=== PATIENT | male | born 1950 | race Caucasian/White ===

== ENCOUNTER 2017-11-07 10:09 | Emergency (ER) | payer MEDICARE ==
[2017-11-07 10:30] VITALS: BP 126/78
--- NOTE | 2017-11-07 10:41 | UC ---
Upper Extremity HPI - HPI Summary HPI Summary: pt states issues with his back and it will sometimes give out. on 09/12/17, it gave out and he injured his L shoulder. he has ongoing pain. he states he can move it all around but it is painful. no numbness to the arm. denies head, neck and any other acute injury. - History of Current Complaint Chief Complaint: UCUpperExtremity Stated Complaint: S/P FALL LEFT SHOULDER PAIN Time Seen by Provider: 11/07/17 10:24 Hx Obtained From: Patient Onset/Duration: Sudden Onset Pain Intensity: 5 Alleviating Factor(s): Nothing Associated Signs And Symptoms: Negative: Swelling, Numbness/Tingling - Allergies/Home Medications Allergies/Adverse Reactions: Allergies Allergy/AdvReac Type Severity Reaction Status Date / Time chlorpromazine AdvReac Agitation Verified 11/07/17 10:26 [From Thorazine] MELORIL AdvReac Severe Agitation Uncoded 08/31/12 10:32 Home Medications: Home Medications Gabapentin CAP(*) [Neurontin 300 CAP(*)] 300 mg PO TID 11/07/17 [History Confirmed 11/07/17] Morphine Sulfate [Morphine Sulfate ER] 30 mg PO BID 11/07/17 [History Confirmed 11/07/17] Tapentadol ER (NF) [Nucynta ER (NF)] 100 mg PO BID 11/07/17 [History Confirmed 11/07/17] PMH/Surg Hx/FS Hx/Imm Hx - Additional Past Medical History Additional PMH: chronic back pain - Surgical History Surgical History: Yes Surgery Procedure, Year, and Place: 1977 CHEST TUBE [facility] INJ FX RIBS PUNCTURED LUNG. 1989 BACK [facility]. 1999 NOSE AND THROAT FOR SNORING KEEL[facility]. 1999 [facility] CARPAL TUNNEL [facility] - Family History Known Family History: Positive: Hypertension, Diabetes - Social History Occupation: Disabled Alcohol Use: None Substance Use Type: None Smoking Status (MU): Never Smoked Tobacco - Immunization History Vaccination Up to Date: Yes Review of Systems Constitutional: Negative Skin: Negative Eyes: Negative ENT: Negative Respiratory: Negative Cardiovascular: Negative Gastrointestinal: Negative Genitourinary: Negative Motor: Negative Neurovascular: Negative Musculoskeletal: Other: - L shoulder pain, chronic back pain Neurological: Negative Psychological: Negative Is Patient Immunocompromised?: No All Other Systems Reviewed And Are Negative: Yes Physical Exam Triage Information Reviewed: Yes Appearance: Well-Appearing Vital Signs: Initial Vital Signs Temp 98.3 F 11/07/17 10:23 Pulse 101 11/07/17 10:23 Resp 18 11/07/17 10:23 BP 126/78 11/07/17 10:23 Pulse Ox 97 11/07/17 10:23 Vital Signs Reviewed: Yes Eyes: Positive: Conjunctiva Clear ENT: Positive: Normal ENT inspection Neck: Positive: Supple, Nontender, No Lymphadenopathy Respiratory: Positive: Lungs clear, Normal breath sounds Cardiovascular: Positive: RRR, No Murmur Abdomen Description: Positive: Nontender, No Organomegaly, Soft Bowel Sounds: Positive: Present Musculoskeletal: Positive: Other: - Head and neck/c-spine are atraumatic. Bare for bilateral shoulder exam: LUE has no gross deformity, swelling or discoloration. Generalized tenderness. Pt launched into active rom L should and it is intact. + drop arm LUE. Below shoulder is atraumatic with full s/v/m function. Neurological: Positive: Alert Psychological: Positive: Age Appropriate Behavior Skin Exam: Normal Diagnostics - Radiology No standard instances Xray Interpretation: No Acute Changes Radiology Interpretation Completed By: Radiologist - L shoulder Upper Extremity Course/Dx - Course Course Of Treatment: no fx or dislocation. + drop arm. probable rotator cuff injury. will refer to orthopedics. pt already on aggressive pain medications. he ambulates with cane and get back spasm thus no sling as I think risk from harm does not out weigh any benefit. - Differential Dx/Diagnosis Provider Diagnoses: L shoulder pain. Probable rotator cuff injury Discharge - Sign-Out/Discharge Documenting (check all that apply): Discharge/Admit/Transfer - Discharge Plan Condition: Stable Disposition: HOME Patient Education Materials: Shoulder Pain (ED) Referrals: Chelo SPIVEY,Tammy [Primary Care Provider] - If Needed Tyron Oleary MD [Medical Doctor] - As Soon As Possible - Billing Disposition and Condition Condition: STABLE Disposition: HOME
--- NOTE | 2017-11-07 11:15 | RAD ---
INDICATION: Left shoulder pain COMPARISON: None TECHNIQUE: Routine frontal, Y and axial views were obtained. FINDINGS: There is no acute bony change. 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 The soft tissues are intact. IMPRESSION: MILD OSTEOARTHRITIC CHANGE.
== END 2017-11-07 11:30 | disposition home or self-care (01) ==
LOC: UCCORT 10:09
DX: M25.512 Pain in left shoulder (principal); X58.XXXA Exposure to other specified factors, initial encounter; Y93.9 Activity, unspecified; Y92.9 Unspecified place or not applicable; Z88.8 Allergy status to other drugs, medicaments and biological substances
CPT/HCPCS: 99211; G0463

== ENCOUNTER 2019-01-01 07:30 | Inpatient (IN) | payer OTHER ==
[2019-01-07] MEDS ORDERED: Buffered Lidocaine 1% SYRIN* 1 ML/SYRINGE INTRADERM ONE (10:53)
[2019-01-08] MEDS ORDERED: Lactated Ringers 1000 ML Bag* 1,000 ML IV SCH (06:00)
[2019-07-10] MEDS ORDERED: Buffered Lidocaine 1% SYRIN* 1 ML/SYRINGE INTRADERM ONE (10:20)
[2019-07-11] MEDS ORDERED: Famotidine IV* 10 MG/ML 2 ML (20 mg) IV ONE (06:00)
[2019-07-11] MEDS ORDERED: Lactated Ringers 1000 ML Bag* 1,000 ML IV SCH (06:00)
--- OUTSIDE RECORDS SUMMARY | 2019-07-11 06:03 | XMS REPORT | Continuity of Care Document ---
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 Onset: 03/20/2013 Social History Type Date Description Comments Sex Unknown Tobacco Use Start: Unknown End: Former Cigarette Smoker Unknown Cigarette Use Quit 26 Years Ago ETOH Use Denies alcohol use Recreational Drug Use Never Used Drugs Tobacco Use Start: Unknown End: Patient is a former smoker Unknown Smoking Status Reviewed: 07/01/19 Patient is a former smoker Exercise Type/Frequency Exercises sporadically Allergies, Adverse Reactions, Alerts Active Allergies Reaction Severity Comments Date Thorazine 03/28/2012 Mellaril 03/28/2012 Medications Active Medications SIG Qnty Indications Ordering Provider Date Pregabalin 2 caps by mouth 90caps Vassilios 07/01/2019 200mg Capsules three times a MD Megan day Amitriptyline HCL 2 by mouth 30tabs Vassilios 07/01/2019 25mg every night MD Megan Tablets Meclizine Pt unsure of Unknown 04/01/2019 dose/how often he takes Enalapril Maleate 1 po qd Unknown 5mg Tablets Cymbalta 1 po bid 30caps Unknown 60mg Caps DR Part Morphine Sulfate 1 tab by mouth 20tabs Unknown 15mg 3 times daily Tablets Terazosin HCL qd Unknown 10mg Capsules Gralise 1 tab by mouth Unknown 600mg Tablets three times daily Amiodarone HCL Pt unsure of Mimi Valerio 200mg how often he Tablets takes Diltiazem HCL ER Pt unsure of Milton Solorzano, Coated Beads how often he MD 240mg Caps takes ER 24HR Pravastatin Sodium Pt unsure of David Goncalves MD 20mg how often he Tablets takes Hydromorphone HCL one every 4 Unknown 4mg hours as needed Tablets pain Plavix 1 by mouth Unknown 75mg Tablets every day Medications Administered in Office Medication SIG Qnty Indications Ordering Provider Date Celestone 3 mg and 3mg Tyron Oleary MD 11/07/2017 Injection Immunizations Description No Information Available Vital Signs Date Vital Result Comment 07/01/2019 12:52pm Height 70 inches 5'10" Weight 210.00 lb Heart Rate 60 /min BP Systolic 138 mmHg BP Diastolic 70 mmHg Pain Level 7 Lower Back BMI (Body Mass Index) 30.1 kg/m2 11/26/2018 2:14pm Height 70 inches 5'10" Weight 220.00 lb BP Systolic Sitting 130 mmHg BP Diastolic Sitting 70 mmHg Pain Level 7 BMI (Body Mass Index) 31.6 kg/m2 Results Test Acquired Date Facility Test Result H/L Range Note CBC No Diff 06/26/2019 [facility] White Blood 8.8 10^3/uL Normal 3.5-10.[address] [place] [address] [phone] Red Blood Count 4.38 10^6/uL Normal 4.18-5.48 Hemoglobin 14.4 g/dL Normal 14.0-18.0 Hematocrit 41 % Low 42-52 Mean Corpuscular Volume 93 fL Normal 80-94 Mean Corpuscular Hemoglobin 33 pg High 27-31 Mean Corpuscular HGB Conc 35 g/dL Normal 31-36 Red Cell Distribution Width 14 % Normal 10-15 Platelet Count 356 10^3/uL Normal 150-450 Mean Platelet Volume 7.8 fL Normal 7.4-10.4 Inr/Protime 06/26/2019 [facility] Inr 1.09 Normal 0.82-1.09 [address] [place] [address] [phone] Laboratory test 06/26/2019 [facility] Activated 34.5 Normal 26.0-38.0 finding [address] [facility] [place] [address] Thrombo Time [phone] Urinalysis 06/26/2019 [facility] Urine Color [place] Profile [address] [place] [address] [phone] Urine Appearance Cloudy Urine Specific [place] 1.019 Normal 1.010-1.030 Urine pH 5.0 Normal 5-9 Urine Urobilinogen Negative Negative Urine Ketones Negative Negative Urine Protein Negative Negative Urine Leukocytes Negative Negative Urine Blood Negative Negative Urine Nitrite Negative Negative Urine Bilirubin Negative Negative Urine Glucose Negative Negative Basic Metabolic 06/26/2019 [facility] Sodium 135 mmol/L Normal 135-145 Panel [address] [place] [address] [phone] Chloride 101 mmol/L Normal 101-111 Co2 Carbon Dioxide 27 mmol/L Normal 22-32 Glucose 144 mg/dL High 70-100 Blood Urea Nitrogen 23 mg/dL Normal 6-24 Creatinine 1.31 mg/dL High 0.67-1.17 BUN/Creatinine Ratio 17.6 Normal 8-20 Calcium 9.1 mg/dL Normal 8.6-10.3 Egfr Non- 54.1 >60 Egfr 65.5 >60 2 Potassium 5.7 mmol/L High 3.5-5.0 Anion Gap 7 mmol/L Normal 2-11 Type & Screen 06/26/2019 [facility] Patient Blood Type O Positive [address] [place] [address] [phone] Antibody Screen NEGATIVE 1 Standard intensity warfarin therapeutic range: 2.0-3.0 High intensity warfarin therapeutic range: 2.5-3.5 2 Because ethnic data is not always readily available, this report includes an eGFR for both -Americans and non- Americans. The National Kidney Disease Education Program (NKDEP) does not endorse the use of the MDRD equation for patients that are not between the ages of 18 and 70, are , have extremes of body size, muscle mass, or nutritional status, or are non- or non-. According to the National Kidney Foundation, irrespective of diagnosis, the stage of the disease is based on the level of kidney function: Stage Description GFR(mL/min/1.73 m(2)) 1 Kidney damage with normal or decreased GFR 90 2 Kidney damage with mild decrease in GFR 60-89 3 Moderate decrease in GFR 30-59 4 Severe decrease in GFR 15-29 5 Kidney failure <15 (or dialysis) Procedures Description No Information Available Medical Devices Description No Information Available Encounters Description No Information Available Assessments Date Code Description Provider 07/01/2019 M96.1 Postlaminectomy syndrome, not elsewhere Chadwick Guzman MD classified 07/01/2019 M47.26 Other spondylosis with radiculopathy, Chadwick Guzman MD lumbar region 07/01/2019 M51.17 Intervertebral disc disorders with Chadwick Guzman MD radiculopathy, lumbosacral region 06/14/2019 M96.1 Postlaminectomy syndrome, not elsewhere Chadwick Guzman MD classified 06/14/2019 M47.26 Other spondylosis with radiculopathy, Chadwick Guzman MD lumbar region 06/14/2019 M43.16 Spondylolisthesis, lumbar region Chadwick Guzman MD Plan of Treatment Future Appointment(s):08/14/2019 12:30 pm - Chadwick Guzman MD at [facility]07/17/2019 12:30 pm - Chadwick Guzman MD at [facility]07/09/2019 7:30 am - Chadwick Guzman MD at [facility]07/01/2019 - IVA Hunt[place]96.1 Postlaminectomy syndrome, not elsewhere [id number] Other spondylosis with radiculopathy, lumbar regionFollow up:RV one week, one month, three months postop.M51.17 Intvrt disc disorders w radiculopathy, lumbosacral region Functional Status Description No Information Available Mental Status Description No Information Available Referrals Description No Information Available
--- OUTSIDE RECORDS SUMMARY | 2019-07-11 06:03 | XMS REPORT | Continuity of Care Document ---
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 Onset: 09/08/2016 Lumbar radiculopathy Tammy Whitney M.D. Onset: 09/08/2016 Type 2 diabetes mellitus Tammy Whitney M.D. Onset: 09/08/2016 Type II diabetes mellitus uncontrolled Tammy Whitney M.D. Onset: 09/08/2016 Chronic pain syndrome Tammy Whitney M.D. Onset: 09/08/2016 Taking medication Tammy Whitney M.D. Onset: 09/08/2016 Hyperlipidemia Tammy Whitney M.D. Onset: 09/08/2016 Walking disability Tammy Whitney M.D. Onset: 09/08/2016 Essential hypertension Tammy Whitney M.D. Onset: 10/14/2016 Screening for malignant neoplasm of colon Tammy Whitney M.D. Onset: 2016 Type 2 diabetes mellitus with diabetic Tammy Whitney M.D. Onset: 06/16/2017 neuropathy, unspecified Disorder of bursa of shoulder region Tammy Whitney M.D. Onset: 10/05/2017 Screening for malignant neoplasm of prostate Tammy Whitney M.D. Onset: 10/05 Low back pain Tammy Whitney M.D. Onset: 10/05/2017 Benign prostatic hypertrophy with outflow Monse Rodriguez M.D. Onset: 2017 obstruction Psychogenic impotence Monse Rodriguez M.D. Onset: 10/13/2017 Paroxysmal supraventricular tachycardia Tammy Whitney M.D. Onset: 04/06/2018 Sleep apnea Tammy Whitney M.D. Onset: 04/13/2018 Atrial fibrillation Tammy Whitney M.D. Onset: 06/05/2018 Hypothyroidism David Goncalves MD Onset: 08/23/2018 Social History Type Date Description Comments Sex Unknown Tobacco Use Start: Unknown End: Former Cigarette Smoker quit 1886 Unknown Smoking Status Reviewed: 07/02/19 Former Cigarette Smoker quit 1886 ETOH Use Denies alcohol use Tobacco Use Start: Unknown End: Patient is a former smoker quit 1986 Unknown Recreational Drug Use Denies Drug Use Allergies, Adverse Reactions, Alerts Active Allergies Reaction Severity Comments Date Thorazine agitation 12/29/2015 Chlorpromazine anxious 04/10/2018 Mellaril agitation 12/29/2015 Thioridazine anxious 04/10/2018 Medications Active Medications SIG Qnty Indications Ordering Date Provider Kayexalate 15g twice a day 453.600gm David Goncalves MD 06/27/2019 Powder for 2 days Plavix 1 by mouth every 30tabs Rashad, 06/25/2019 75mg Tablets day Milton Persaud M.D., FACC Aspirin Adult Low 1 by mouth every 30tabs Rashad, 06/25/2019 Dose day Milton Persaud M.D., 81mg Tablets DR BABAK Levothyroxine Sodium Take One Tablet By 30tabs E03.9 David Goncalves MD 02/25 Mouth Every Day as 88mcg Tablets Directed Metoprolol Tartrate take one tablet by 180tabs Rashad, 06/25/2018 mouth twice a day Milton Persaud M.D., 50mg Tablets FAC Amiodarone HCL 1 Tablet Once A 30tabs Mimi Valerio 06/05/2018 200mg Day Emil, MSN, Tablets RACECOURSE BARRIER ATTENDANT Pravastatin Sodium Take One Tablet By 90tabs David Goncalves MD 04/06/2018 Mouth Every Day 20mg Tablets Metformin HCL 1 by mouth twice a 180tabs E11.9 Rashad, 12/28/2016 1000mg day Milton Persaud M.D., Tablets FACIrvin Enalapril Maleate Take One Tablet By 90tabs Romina Sutton, 11/22/2016 Mouth Every Day 20mg Tablets Freestyle Lite Test test fingerstick 300units E11.9 Gill James, 2015 blood sugar three PNP-BC, RACECOURSE BARRIER ATTENDANT, Strips times a day Ibclc Freestyle Lite Blood bring to medical 1units E11.9 Yemi Dahl 12/29/2015 Glucose Monitoring office for E., DO System teaching Device Gralise 3 tabs po daily Yemi Dahl 12/29/2015 600mg Tablets E., DO Cymbalta 1 by mouth every 30caps Yemi Dahl 12/29/[address] 12 hrs E., DO Part Morphine Sulfate 1 by mouth tid Unknown 30mg Tablets Hydromorphone HCL 1 by mouth every 4 Unknown 4mg hours prn Tablets Amitriptyline HCL 1-3 tablets by Unknown mouth every night 25mg Tablets at bedtime Diclofenac Epolamine 1 every 12 hrs Unknown 1.3% Patches Diclofenac Potassium 1 by mouth 3x Unknown every day 50mg Tablets History Medications Aspirin Adult 1 PO qd 90tabs E11.9 Milton Solorzano, 05/30/2019 - Dary, [facility] 06/25/2019 325mg Tablets Eliquis 1 tab by mouth 180tabs I48.0 Milton Solorzano, 03/22/2019 - 5mg twice daily Dary, [facility] 05/30/2019 Tablets Medications Administered in Office Medication SIG Qnty Indications Ordering Provider Date Depomedrol 40mg/1cc Jessica Barajas MD 04/17/2019 (methylprednisolone acetate) Injection Depomedrol 40mg/1cc Jessica Barajas MD 01/17/2019 (methylprednisolone acetate) Injection Injection, Monse Wilks M.D. 11/01/2018 undecanoate, 1 mg- 750 units Injection Injection, Monse Wilks M.D. 08/20/2018 undecanoate, 1 mg- 750 units Injection Injection, Monse Wilks M.D. 06/08/2018 undecanoate, 1 mg- 750 units Injection Injection, Monse Wilks M.D. 02/27/2018 undecanoate, 1 mg- 750 units Injection Injection, Monse Wilks M.D. 01/30/2018 undecanoate, 1 mg- 750 units Injection Immunizations CPT Code Status Date Vaccine Lot # [id number] Given 10/03/2018 Pneumococcal Conjugate Vaccine 13 Valent For [id number] Intramuscular Use 68022 Given 12/29/2015 Pneumococcal Conjugate Vaccine 13 Valent For [id number] Intramuscular Use Q2038 Given 05/09/2014 Influenza Vaccine (Fluzone) Age 3 And Older 30738 Given Unknown Influenza Virus Vaccine, Quadrivalent, 36 Mos+, .5ML Vital Signs Date Vital Result Comment 07/02/2019 10:29am BP Systolic 111 mmHg BP Diastolic 68 mmHg Body Temperature 97.0 F Heart Rate 69 /min Respiratory Rate 16 /min Height 70 inches 5'10" Weight 208.00 lb BMI (Body Mass Index) 29.8 kg/m2 BSA (Body Surface Area) 2.12 m2 Titus body weight in kilograms 75 kg 06/18/2019 11:07am BP Systolic 112 mmHg BP Diastolic 68 mmHg Body Temperature 97.0 F Heart Rate 57 /min Respiratory Rate 18 /min Height 70 inches 5'10" Weight 209.00 lb BMI (Body Mass Index) 30.0 kg/m2 BSA (Body Surface Area) 2.13 m2 Titus body weight in kilograms 75 kg O2 % BldC Oximetry 90 % Results Test Acquired Date Facility Test Result H/L Range Note CBC No Diff 06/26/2019 [facility] White Blood 8.8 10^ 3/uL Normal 3.5-10.8 [phone] Count Red Blood Count 4.38 10^6/uL Normal 4.18-5.48 Hemoglobin 14.4 g/dL Normal 14.0-18.0 Hematocrit 41 % Low 42-52 Mean Corpuscular Volume 93 fL Normal 80-94 Mean Corpuscular Hemoglobin 33 pg High 27-31 Mean Corpuscular HGB Conc 35 g/dL Normal 31-36 Red Cell Distribution Width 14 % Normal 10-15 Platelet Count 356 10^3/uL Normal 150-450 Mean Platelet Volume 7.8 fL Normal 7.4-10.4 Inr/Protime 06/26/2019 [facility] Inr 1.09 Normal 0.82-1.09 2 [phone] Laboratory test 06/26/2019 [facility] Activated 34.5 Normal 26.0-38.0 finding [phone] Partial seconds Thrombo Time Urinalysis 06/26/2019 [facility] Urine Color [place] Profile [phone] Urine Appearance Cloudy Urine Specific [place] 1.019 Normal 1.010-1.030 Urine pH 5.0 Normal 5-9 Urine Urobilinogen Negative Negative Urine Ketones Negative Negative Urine Protein Negative Negative Urine Leukocytes Negative Negative Urine Blood Negative Negative Urine Nitrite Negative Negative Urine Bilirubin Negative Negative Urine Glucose Negative Negative Basic Metabolic 06/26/2019 [facility] Sodium 135 mmol /L Normal 135-145 Panel [phone] Chloride 101 mmol/L Normal 101-111 Co2 Carbon Dioxide 27 mmol/L Normal 22-32 Glucose 144 mg/dL High 70-100 Blood Urea Nitrogen 23 mg/dL Normal 6-24 Creatinine 1.31 mg/dL High 0.67-1.17 BUN/Creatinine Ratio 17.6 Normal 8-20 Calcium 9.1 mg/dL Normal 8.6-10.3 Egfr Non- 54.1 >60 Egfr 65.5 >60 2 Potassium 5.7 mmol/L High 3.5-5.0 Anion Gap 7 mmol/L Normal 2-11 Type & Screen 06/26/2019 [facility] Patient Blood O Positive [phone] Type Antibody Screen NEGATIVE Comprehensive Metabolic 06/18/[address] [facility] [address] Glucose 236 mg/dL High 74-106 3 Panel [address] [place] [address] [phone] BUN 30 mg/dL High 7-18 Creatinine 1.7 mg/dL High 0.6-1.3 Glom Filtration Rate, Estimate 43 mL/min >60 If 51 mL/min >60 4 BUN/Creat 17.6 ratio Sodium 129 mmol/L Low 136-145 Potassium 5.2 mmol/L High 3.5-5.1 Chloride 97 mmol/L Low 98-107 Carbon Dioxide 24 mmol/L Normal 21-32 Anion Gap 8 mEq/L Normal 8-16 Calcium 8.7 mg/dL Normal 8.5-10.1 Total Protein 7.4 g/dL Normal 6.4-8.2 Albumin 3.4 g/dL Normal 3.4-5.0 Globulin 4.0 g/dL Normal 1.9-4.3 Alb/Glob 0.9 ratio Bilirubin,Total 0.4 mg/dL Normal 0.2-1.0 Sgot/Ast 20 U/L Normal 15-37 SGPT/Alt 26 U/L Normal 12-78 Alkaline Phosphatase 245 U/L High 45-117 Glycohemoglobin 06/18/[address] Glycohemoglobin 8.3 % High 4.2-6.[address] (A1c) [place], [place] [id number] [phone] eAG 192 mg/dL Laboratory test 06/18/[address] Thyroid 2.18 Normal 0.30- 4.[address] Stim uIU/[place] [address] Hormone [phone] CBC W/Automated 06/18/[address] White Blood 15.8 K/uL High 3.4-10.[address] Count [place], [place] [id number] [phone] Red Blood Count 4.41 M/uL Normal 4.20-5.80 Hemoglobin 14.1 gm/dL Normal 12.8-17.0 Hematocrit 41.8 % Normal 38.0-48.0 Mean Cell Volume 94.8 fl Normal 80.0-96.0 Mean Corpuscular HGB 32.0 pg Normal 27.0-33.0 Mean Corpuscular HGB Conc 33.7 g/dL Normal 31.7-36.0 Platelet Count 323 K/uL Normal 155-360 Red Cell Distri Width SD 45.1 fl Normal 36-51 Red Cell Distri Width %CV 12.9 % Normal 11.6-15.8 Mean Platelet Volume 10.4 fl Normal 6.6-10.6 Neut% 85.4 % High 33.0-73.0 Lymph % 5.2 % Low 20.0-42.0 [place] % 7.6 % Normal 0.0-10.0 Eo% 0.2 % Normal 0.0-6.6 Bas% 0.4 % Normal 0.0-1.1 Immature Grans 1.2 % Normal 0.0-5.0 NRBC % 0.0 /100WBC < 10/ 100 WBC Neut# 13.51 K/uL High 1.8-7.0 Lymph # 0.83 K/uL Low 1.0-4.0 [place] # 1.21 K/uL High 0.0-0.8 Eos # 0.03 K/uL Normal 0.0-0.5 Baso # 0.07 K/uL Normal 0.0-0.1 Immature Grans Absolute 0.19 K/uL NRBC # 0.00 K/uL CBC W/Automated 03/22/2019 [facility] White Blood 6.2 K/uL Normal 3.4-10.5 [address] [place] [address] [phone] Red Blood Count 4.32 M/uL Normal 4.20-5.80 Hemoglobin 13.4 gm/dL Normal 12.8-17.0 Hematocrit 39.7 % Normal 38.0-48.0 Mean Cell Volume 91.9 fl Normal 80.0-96.0 Mean Corpuscular HGB 31.0 pg Normal 27.0-33.0 Mean Corpuscular HGB Conc 33.8 g/dL Normal 31.7-36.0 Platelet Count 257 K/uL Normal 155-360 Red Cell Distri Width SD 50.4 fl Normal 36-51 Red Cell Distri Width %CV 15.1 % Normal 11.6-15.8 Mean Platelet Volume 9.8 fl Normal 6.6-10.6 Neut% 60.7 % Normal 33.0-73.0 Lymph % 19.4 % Low 20.0-42.0 [place] % 11.4 % High 0.0-10.0 Eo% 6.7 % High 0.0-6.6 Bas% 1.0 % Normal 0.0-1.1 Immature Grans 0.8 % Normal 0.0-5.0 NRBC % 0.0 /100WBC < 10/ 100 WBC Neut# 3.78 K/uL Normal 1.8-7.0 Lymph # 1.21 K/uL Normal 1.0-4.0 [place] # 0.71 K/uL Normal 0.0-0.8 Eos # 0.42 K/uL Normal 0.0-0.5 Baso # 0.06 K/uL Normal 0.0-0.1 Immature Grans Absolute 0.05 K/uL NRBC # 0.00 K/uL Laboratory test 03/22/2019 [facility] Magnesium 2.1 mg/dL Normal 1.8-2.4 finding [address] [place], [place] [id number] [phone] Comprehensive 03/22/2019 [facility] Glucose 232 mg/dL High 74-106 Metabolic Panel [address] [place] [address] [phone] BUN 22 mg/dL High 7-18 Creatinine 1.2 mg/dL Normal 0.6-1.3 Glom Filtration Rate, Estimate >60 mL/min >60 If >60 mL/min >60 7 BUN/Creat 18.3 ratio Sodium 136 mmol/L Normal 136-145 Potassium 4.7 mmol/L Normal 3.5-5.1 Chloride 104 mmol/L Normal 98-107 Carbon Dioxide 30 mmol/L Normal 21-32 Anion Gap 2 mEq/L Low 8-16 Calcium 8.4 mg/dL Low 8.5-10.1 Total Protein 7.1 g/dL Normal 6.4-8.2 Albumin 3.8 g/dL Normal 3.4-5.0 Globulin 3.3 g/dL Normal 1.9-4.3 Alb/Glob 1.2 ratio Bilirubin,Total 0.3 mg/dL Normal 0.2-1.0 Sgot/Ast 19 U/L Normal 15-37 SGPT/Alt 31 U/L Normal 12-78 Alkaline Phosphatase 114 U/L Normal 45-117 Laboratory test 02/22/2019 [facility] Thyroid Stim 8.10 uIU/mL High 0.30-4.20 8 finding [address] [place] [address] [phone] 1 Standard intensity warfarin therapeutic range: 2.0-3.0 [...] 15-29 5 Kidney failure <15 (or dialysis) 3 E11.40 4 Note: Persistent reduction for 3 months or more in an eGFR <60 mL/min/1.73 m2 defines CKD. Patients with eGFR values >/=60 mL/min/1.73 m2 may also have CKD if evidence of persistent proteinuria is present. The original MDRD equation for estimated GFR is not valid for patients less than 18 years of age. Additional information may be found at www.kdoqi.org. 5 Elevated levels of HbA1c suggest the need for more aggressive treatment of glycemia. The [place] [employer] recommends that a primary goal of therapy should be a HbA1c of <7% and that physicians should re-evaluate the treatment regimen in patients with HbA1c values consistently >8%. 6 I48.0 7 Note: Persistent reduction for 3 months or more in an eGFR <60 mL/min/1.73 m2 defines CKD. Patients with eGFR values >/=60 mL/min/1.73 m2 may also have CKD if evidence of persistent proteinuria is present. The original MDRD equation for estimated GFR is not valid for patients less than 18 years of age. Additional information may be found at www.kdoqi.org. 8 E03.9 Procedures Date Code Description Status 05/30/2019 39130 Doppler ECHO Color Flow Mapping Completed 05/30/2019 52595 Doppler Echocardiogram Complete Completed 05/30/2019 14412 Transesophageal Echocardiogram Completed 05/03/2019 18854 EKG-Tracing And Report Completed 04/17/2019 56540 Radiology, Shoulder: Two Views (Sso) Completed 04/17/2019 12143 Radiology, Shoulder: Two Views (Sso) Completed 04/17/2019 82886 Asp./Injection major joint Completed 03/22/2019 79627 [employer]plant[employer] Heart Rhythm Derived Completed Data 02/19/2019 67994 Doppler ECHO Color Flow Mapping Completed 02/19/2019 56532 Doppler Echocardiogram Complete Completed 02/19/2019 61366 Transesophageal Echocardiogram Completed 02/04/2019 67614 EKG-Tracing And Report Completed 01/17/2019 45229 Asp./Injection major joint Completed Medical Devices Description No Information Available Encounters Type Date Location Provider Dx Diagnosis Office Visit 06/18/2019 [facility] Laura Leung, Z01.818 Encounter for other 11:30a Sukhjinder MICHELLE preprocedural examination E11.40 Type 2 diabetes mellitus with diabetic neuropathy, unsp Z95.9 Presence of cardiac and vascular implant and graft, unsp I10 Essential (primary) hypertension G47.33 Obstructive sleep apnea (adult) (pediatric) E03.9 Hypothyroidism, unspecified Office Visit 05/03/2019 9:40a Cardiology Office Jose Eduardo Rios Z95.9 Presence of B., PA cardiac and vascular implant and graft, unsp I48.0 Paroxysmal atrial fibrillation I10 Essential (primary) hypertension G47.33 Obstructive sleep apnea (adult) (pediatric) Office Visit 03/22/2019 1:40p Cardiology Office Gabriel I48.0 Paroxysmal atrial Marlyss B., PA fibrillation G47.33 Obstructive sleep apnea (adult) (pediatric) I10 Essential (primary) hypertension Q21.1 Atrial septal defect Office Visit 02/04/2019 2:30p Cardiology Office Pako Higgins I48.0 Paroxysmal atrial MD fibrillation Z79.01 long term care administrator (current) use of anticoagulants Z95.9 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 hypofunction I10 Essential (primary) hypertension I48.91 Unspecified atrial fibrillation Assessments Date Code Description Provider 07/02/2019 E87.5 Hyperkalemia David Goncalves MD 07/02/2019 E03.9 Hypothyroidism, unspecified David Goncalves MD 07/02/2019 I10 Essential (primary) hypertension David Goncalves MD 07/02/2019 E11.40 Type 2 diabetes mellitus with David Goncalves MD diabetic neuropathy, unspecifi 07/02/2019 I48.0 Paroxysmal atrial fibrillation David Goncalves MD 06/18/2019 Z01.818 Encounter for other preprocedural Laura Leung PA examination 06/18/2019 E11.40 Type 2 diabetes mellitus with Laura Leung PA diabetic neuropathy, unspecifi 06/18/2019 Z95.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 PA implant and graft, unspecif 06/18/2019 I10 Essential (primary) hypertension Laura Leung PA 06/18/2019 G47.33 Obstructive sleep apnea of adult Laura Leung PA 06/18/2019 E03.9 Hypothyroidism, unspecified Laura Leung PA 05/30/2019 I48.0 Paroxysmal atrial fibrillation Milton Solorzano M.D., [facility] 05/03/2019 Z95.9 Presence of cardiac and vascular Jose Eduardo Rios PA implant and graft, unspecified 05/03/2019 I48.0 Paroxysmal atrial fibrillation Jose Eduardo Rios, PA 05/03/2019 I10 Essential (primary) hypertension Jose Eduardo Rios, PA 05/03/2019 G47.33 Obstructive sleep apnea of adult Jose Eduardo Rios, PA 04/17/2019 M19.012 Primary osteoarthritis, left Jessica Barajas MD shoulder 04/17/2019 S46.002D Unspecified injury of muscle(s) and Jessica Barajas MD tendon(s) of the rotator cuff of left shoulder, subsequent encounter 04/17/2019 M75.42 Impingement syndrome of left Jessica Barajas MD shoulder 03/22/2019 Z95.9 Presence of cardiac and vascular Pako Higgins MD implant and graft, unspecified 03/22/2019 Z95.9 Presence of cardiac and vascular Jose Eduardo Rios., PA implant and graft, unspecif 03/22/2019 I48.0 Paroxysmal atrial fibrillation Jose Eduardo Rios, PA 03/22/2019 I10 Essential (primary) hypertension Pako Higgins MD 03/22/2019 G47.33 Obstructive sleep apnea of adult Jose Eduardo Rios, PA 03/22/2019 R42 Dizziness and giddiness Pako Higgins MD 03/22/2019 R42 Dizziness and giddiness Jose Eduardo Rios, PA 03/22/2019 I10 Essential (primary) hypertension Jose Eduardo Rios, PA 03/22/2019 I48.0 Paroxysmal atrial fibrillation Pako Higgins MD 03/22/2019 Q21.1 Atrial septal defect Jose Eduardo Rios, PA 03/22/2019 I48.0 Paroxysmal atrial fibrillation Jose Eduardo Rios, PA 02/19/2019 I48.0 Paroxysmal atrial fibrillation Pako Higgins MD 02/04/2019 I48.0 Paroxysmal atrial fibrillation Pako Higgins MD 02/04/2019 Z79.01 Long-term current use of Pako Higgins MD anticoagulant 02/04/2019 Z95.9 Presence of cardiac and vascular Pako Higgins MD implant and graft, unspecif 02/04/2019 G47.33 Obstructive sleep apnea of adult Pako Higgins MD 01/17/2019 M75.121 Complete rotator cuff tear or Jessica Barajas MD rupture of right shoulder, not 01/17/2019 M19.011 Primary osteoarthritis, right Jessica Barajas MD shoulder 01/15/2019 E29.1 Testicular hypofunction Monse Rodriguez M.D. 01/15/2019 I10 Essential (primary) hypertension Monse Rodriguez M.D. 01/15/2019 I48.91 Unspecified atrial fibrillation Monse Rodriguez M.D. Plan of Treatment Future Appointment(s):07/08/2019 11:30 am - David Goncalves MD at [facility] RD11/01/2019 1:20 pm - Jose Eduardo Rios PA at Cardiology [id number] 10:45 am - Filipe Wright MD at Ophthalmology Functional Status Functional Condition Comment Date Status Slow with ambulating Active uses cane Active Mental Status Description No Information Available Referrals Refer to Reason for Referral Status Appt Date Koko Garcia MD reverse TSA consideration for R shoulder Created [facility] [address] [place] [address] [phone] [place], Noel Dan M.D. WATCHMAN Closed 04/02/2019 [facility] [address] [place], [place] [address] [phone]
--- OUTSIDE RECORDS SUMMARY | 2019-07-11 06:03 | XMS REPORT | Continuity of Care Document ---
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 Started smoking at age 14. ETOH Use Has consumed alcohol in Patient states he the past stopped drinking 11 years ago. Tobacco Use Start: Unknown End: Patient is a former smoker Unknown Smoking Status Reviewed: 05/10/19 Patient is a former smoker Allergies, Adverse Reactions, Alerts Active Allergies Reaction Severity Comments Date Mellaril Twitching 09/21/2012 Medications Active Medications SIG Qnty Indications Ordering Date Provider Diclofenac Sodium 1 by mouth three 90tabs Tulio Garsia, 11/23/2018 50mg times a day DO, MPH Tablets DR Yo si apply to 30units Tulio Garsia, 05/24/2018 1.3% Patches affected area DO, MPH every 12 hours chronic pain patient Neurontin si by mouth 90tabs Tulio Garsia, 02/29/2016 600mg Tablets three times a DO, MPH day as directed chronic pain patient Elavil si-3 by mouth 90tabs Tulio Garsia, 01/27/2016 25mg Tablets every night at DO, MPH bedtime. as directed Hydromorphone HCL si-2 by 150tabs G89.21 Tulio Garsia, 11/30/2015 4mg mouth every 4-6 DO, MPH Tablets hours as directed chronic pain patient. dx: m96.1, g89.21, m25.11 M96.1 M54.5 Morphine Sulfate si by mouth 90tabs G89.21 Tulio Garsia DO, 2014 30mg every 8 hours MPH Tablets chronic pain patient dx: m96.1, g89.21, m25.11 M96.1 F31.9 Cymbalta si by mouth every 60caps Tulio Garsia DO, 11/12/[address] Part 12 hours as directed MPH chronic pain patient Evening [place] Oil Unknown 500mg Capsules Vitamin B-12 si by mouth every Unknown 500mcg Tablets day Vitamin D Unknown 1000Unit Tablets Aspirin Unknown 81mg [place] Fish Oil 2 by mouth every day Unknown 1000mg Capsules as directed Aveed Unknown 750mg/3ML Solution Pravastatin Sodium Unknown 20mg Tablets Eliquis si po qd Unknown 5mg Tablets Enalapril Maleate si tab by mouth Unknown 10mg every day Tablets Metformin HCL ER 1 by mouth every day Unknown 500mg Tablets ER 24HR Immunizations Description No Information Available Vital Signs Date Vital Result Comment 06/10/2019 8:55am BP Systolic 138 mmHg BP Diastolic 80 mmHg Heart Rate 84 /min Respiratory Rate 20 /min Height 70 inches 5'10" Weight 206.00 lb Pain Level 8 Pain at this time. Pain Level With Medicine 8 on average with meds Pain Level Without Medicine 9 without meds BMI (Body Mass Index) 29.6 kg/m2 05/10/2019 8:50am BP Systolic 130 mmHg BP Diastolic 78 mmHg Heart Rate 74 /min Respiratory Rate 20 /min Height 70 inches 5'10" Weight 208.00 lb Pain Level 7 Pain at this time. Pain Level With Medicine 6 on average with meds Pain Level Without Medicine 9 without meds BMI (Body Mass Index) 29.8 kg/m2 Results Description No Information Available Procedures Date Code Description Status 04/09/2019 74958 Omt 1-2 Body Regions Completed 03/12/2019 07727 Omt 1-2 Body Regions Completed 02/05/2019 21067 Therapeutic, Prophylactic Or Diagnostic Injection Subq/Im Completed 01/07/2019 08126 Omt 1-2 Body Regions Completed Medical Devices Description No Information Available Encounters Type Date Location Provider Dx Diagnosis Office Visit 05/10/2019 Main Office as Of Tulio Garsia DO G89.21 Chronic pain due 9:00a 07/20/13 MPH to trauma M54.5 Low back pain M25.511 Pain in right shoulder 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 (current) use of opiate analgesic Office Visit 04/09/2019 9:30a Main Office as Tulio Garsia G89.21 Chronic pain due Of 07/20/13 DO, MPH to trauma M54.5 Low back pain M25.511 Pain in right shoulder M99.07 Segmental and somatic dysfunction of upper extremity Z79.891 [facility] (current) use of opiate analgesic Z79.891 [facility] (current) use of opiate analgesic Office Visit 03/12/2019 9:15a Main Office as Tulio Garsia G89.21 Chronic pain due Of 07/20/13 DO, MPH to trauma M54.5 Low back pain M25.511 Pain in right shoulder M99.07 Segmental and somatic dysfunction of upper extremity Z79.891 [facility] (current) use of opiate analgesic Z79.891 [facility] (current) use of opiate analgesic Office Visit 02/05/2019 9:15a Main Office as Tulio Garsia G89.21 Chronic pain due Of 07/20/13 DO, MPH to trauma M54.5 Low back pain M96.1 Postlaminectomy syndrome, not elsewhere classified 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 (current) use of opiate analgesic R53.83 Other fatigue Z79.891 [facility] (current) use of opiate analgesic Office Visit 01/07/2019 9:00a Main Office as Tulio Garsia G89.21 Chronic pain due Of 07/20/13 DO, MPH to trauma M54.5 Low back pain M96.1 Postlaminectomy syndrome, not elsewhere classified M25.511 Pain in right shoulder M99.07 Segmental and somatic dysfunction of upper extremity 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 (current) use of opiate analgesic Z79.891 [facility] (current) use of opiate analgesic Assessments Date Code Description Provider 06/10/2019 G89.21 Chronic pain due to trauma Garsia, Tulio, DO, MPH 06/10/2019 M25.511 Pain in right shoulder Garsia, Tulio, DO, MPH 06/10/2019 M54.5 Low back pain Garsia, Tulio, DO, MPH 06/10/2019 M99.07 Segmental and somatic dysfunction of upper Garsia, Tulio, DO, MPH extremity 06/10/2019 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 (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) use of 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 analgesic Garsia, Tulio , DO, MPH 06/10/2019 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 (current) use of opiate analgesic Garsia, Tulio , DO, MPH 05/10/2019 G89.21 Chronic pain due to trauma Garsia, Tulio, DO, MPH 05/10/2019 M54.5 Low back pain Garsia, Tulio, DO, MPH 05/10/2019 M25.511 Pain in right shoulder Garsia, Tulio, DO, MPH 05/10/2019 Z79.891 [facility] (current) use of opiate analgesic Garsia, Tulio , DO, MPH 05/10/2019 Z79.891 [facility] (current) use of opiate analgesic Garsia, Tulio , DO, MPH 04/09/2019 G89.21 Chronic pain due to trauma Garsia, Tulio, DO, MPH 04/09/2019 M54.5 Low back pain Garsia, Tulio, DO, MPH 04/09/2019 M25.511 Pain in right shoulder Garsia, Tulio, DO, MPH 04/09/2019 M99.07 Segmental and somatic dysfunction of upper Garsia, Tulio, DO, MPH extremity 04/09/2019 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 (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) use of 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 analgesic Garsia, Tulio , DO, MPH 04/09/2019 Z79.891 [facility] (current) use of opiate analgesic Garsia, Tulio , DO, MPH 03/12/2019 G89.21 Chronic pain due to trauma Garsia, Tulio, DO, MPH 03/12/2019 M54.5 Low back pain Garsia, Tulio, DO, MPH 03/12/2019 M25.511 Pain in right shoulder Garsia, Tulio, DO, MPH 03/12/2019 M99.07 Segmental and somatic dysfunction of upper Garsia, Tulio, DO, MPH extremity 03/12/2019 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 (current) use of opiate analgesic Garsia, Tulio , DO, MPH 03/12/2019 Z79.891 [facility] (current) use of opiate analgesic Garsia, Tulio , DO, MPH 02/05/2019 G89.21 Chronic pain due to trauma Garsia, Tulio, DO, MPH 02/05/2019 M54.5 Low back pain Garsia, Tulio, DO, MPH 02/05/2019 M96.1 Postlaminectomy syndrome, not elsewhere Garsia, Tulio, DO, MPH classified 02/05/2019 Z79.891 [facility] (current) use of opiate analgesic Garsia, Tulio , DO, MPH 02/05/2019 R53.83 Other fatigue Garsia, Tulio, DO, MPH 02/05/2019 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 (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) use of opiate analgesic Garsia, Tulio , DO, MPH 01/07/2019 G89.21 Chronic pain due to trauma Garsia, Tulio, DO, MPH 01/07/2019 M54.5 Low back pain Garsia, Tulio, DO, MPH 01/07/2019 M96.1 Postlaminectomy syndrome, not elsewhere Garsia, Tulio, DO, MPH classified 01/07/2019 M25.511 Pain in right shoulder GarsiaBailee retanaph, DO, MPH 01/07/2019 M99.07 Segmental and somatic dysfunction of upper GarsiaBailee retanaph, DO, MPH extremity 01/07/2019 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 Symptoms and complaints discussed and reviewed today. No significant changes in physical findings. Continue current medical pain management.M25.511 Pain in right shoulderComments:Chronic. Symptoms and complaints discussed and reviewed today. No significant changes in physical findings. Continue current medical pain management.M54.5 Low back painComments: Chronic. Symptoms and complaints discussed and reviewed today.No changes in physical findings. Patient is stable and comfortable when current medical therapy is rendered.M99.07 Segmental and somatic dysfunction of upper extremityComments:Chronic. Symptoms and complaints discussed and reviewed today. Somatic dysfunctions noted warrantingOMT to the shoulder. Continue current medical pain management and OMT. Myofascial restrictions. OMTperformed. R.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 (current) use of opiate analgesicNew Labs:Urine Drug Screen, Ordered: 06/10/19Comments:Urine drug screen sample taken. Rapid Point of Care Cup was reviewed in office with patient. Will send out UDT Rapid to Quantitative lab for confirmation testing. Urine Drug Testing (UDT) was done today to monitor opiate use and to monitor possible use of illicit substances. I will discuss the results at the next appointment from the Quantitative lab.The following tests were ordered:6 AM, AMPH, RASHAUN, MIR, BUP, CARIS, COCM, ETG, FENT, MCSHSG, OPI, OXY, PCP, TAPEN, XTSY, ZOLP. A urine drug test ( UDT) using a rapid screen cup was ordered for this patient and collected on site today. Creatinine has been ordered as well for specimen validity, not for kidney function. Urine Drug Testing is a mandatory component of chronic opioid management, as part of the baseline assessment and ongoing re-assessment of opioid therapy. Per [place] [employer], [place] Non- Acute Pain Medical Treatment Guidelines, section F.3.d.i. This test is to be used in conjunction with other clinical information when decisions are to be made to continue, adjust or discontinue treatment. This information includes clinical observation, results of addiction screening, pill counts, and prescription drug monitoring reports. Preliminary UDT screen results are not final and should not be used to determine patient care or plan of treatment. This sample will be sent out for a more comprehensive quantitative confirmation LCMS study. It is part of the treatment process of prescribing controlled substances and is considered standard of care at this clinic.AllComments: Continue current medical pain management; injection therapy, osteopathic manipulation, PT / modalities, and consults as needed to manage chronic pain.Non - opioid pain management discussed and optionsdiscussed.Side effects discussed; anticipatory guidance given. Patient clearly understand and agree with all medical treatments and suggestions. 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 Importance of regular nutrition throughout the day discussed.Activity as toleratedContinue with PCP Functional Status Description No Information Available Mental Status Description No Information Available Referrals Description No Information Available
--- OUTSIDE RECORDS SUMMARY | 2019-07-11 06:03 | XMS REPORT | Continuity of Care Document ---
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 Onset: 03/20/2013 Social History Type Date Description Comments Sex Unknown Tobacco Use Start: Unknown End: Former Cigarette Smoker Unknown Cigarette Use Quit 26 Years Ago ETOH Use Denies alcohol use Recreational Drug Use Never Used Drugs Tobacco Use Start: Unknown End: Patient is a former smoker Unknown Smoking Status Reviewed: 11/23/18 Patient is a former smoker Exercise Type/Frequency Exercises sporadically Allergies, Adverse Reactions, Alerts Active Allergies Reaction Severity Comments Date Thorazine 03/28/2012 Mellaril 03/28/2012 Medications Active Medications SIG Qnty Indications Ordering Provider Date Meclizine Pt unsure of Unknown 04/01/2019 dose/how [...] often he Tablets takes Diltiazem HCL ER Coated Pt unsure of Milton Solorzano, Beads how often he MD 240mg Caps ER 24HR takes Pravastatin Sodium Pt unsure of David Goncalves MD 20mg how often he Tablets takes Hydromorphone HCL one every 4 Unknown 4mg hours as needed Tablets pain Eliquis 1 tab PO bid Gill James , 5mg Tablets 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 Medications Administered in Office Medication SIG Qnty Indications Ordering Provider Date Celestone 3 mg and 3mg Tyron Oleary MD 11/07/2017 Injection Immunizations Description No Information Available Vital Signs Date Vital Result Comment 11/26/2018 2:14pm Height 70 inches 5'10" Weight 220.00 lb BP Systolic Sitting 130 mmHg BP Diastolic Sitting 70 mmHg Pain Level 7 BMI (Body Mass Index) 31.6 kg/m2 11/23/2018 9:58am Height 70 inches 5'10" Weight 220.00 lb Heart Rate 64 /min BP Systolic Sitting 108 mmHg BP Diastolic Sitting 66 mmHg Pain Level 6 BMI (Body Mass Index) 31.6 kg/m2 Results Test Acquired Date Facility Test Result H/L Range Note CBC No Diff 12/25/2018 [facility] White Blood 7.1 10^3/uL Normal 3.5-10.[address] [place] [address] [phone] Red Blood Count 4.90 10^6/uL Normal 4.18-5.48 Hemoglobin 14.8 g/dL Normal 14.0-18.0 Hematocrit 43 % Normal 42-52 Mean Corpuscular Volume 89 fL Normal 80-94 Mean Corpuscular Hemoglobin 30 pg Normal 27-31 Mean Corpuscular HGB Conc 34 g/dL Normal 31-36 Red Cell Distribution Width 15 % Normal 10-15 Platelet Count 307 10^3/uL Normal 150-450 Mean Platelet Volume 8.3 fL Normal 7.4-10.4 Urinalysis Profile 12/25/2018 [facility] Urine Color Yellow [address] [place] [address] [phone] Urine Appearance Clear Urine Specific [place] 1.018 Normal 1.010-1.030 Urine pH 5.0 Normal 5-9 Urine Urobilinogen Negative Negative Urine Ketones Negative Negative Urine Protein Negative Negative Urine Leukocytes Negative Negative Urine Blood Negative Negative Urine Nitrite Negative Negative Urine Bilirubin Negative Negative Urine Glucose Negative Negative Basic Metabolic 12/25/2018 [facility] Sodium 135 mmol/L Normal 135-145 Panel [address] [place] [address] [phone] Chloride 99 mmol/L Low 101-111 Co2 Carbon Dioxide 30 mmol/L Normal 22-32 Glucose 120 mg/dL High 70-100 Blood Urea Nitrogen 21 mg/dL Normal 6-24 Creatinine 1.53 mg/dL High 0.67-1.17 BUN/Creatinine Ratio 13.7 Normal 8-20 Calcium 10.2 mg/dL Normal 8.6-10.3 Egfr Non- 45.2 >60 Egfr 54.7 >60 1 Potassium 5.1 mmol/L High 3.5-5.0 Anion Gap 6 mmol/L Normal 2-11 Inr/Protime 12/25/2018 [facility] Inr 1.27 High 0.82-1.09 [address] [place] [address] [phone] Laboratory test 12/25/2018 [facility] Partial 35.2 Normal 26.0 -38.0 finding [address] [facility] [place] [address] Time PTT [phone] Type & Screen 12/25/2018 [facility] Patient O Positive [address] [facility] [place] [address] [phone] Antibody Screen NEGATIVE 1 Because ethnic data is not always readily [...] 15-29 5 Kidney failure <15 (or dialysis) 2 Standard intensity warfarin therapeutic range: 2.0-3.0 High intensity warfarin therapeutic range: 2.5-3.5 Procedures Description No Information Available Medical Devices Description No Information Available Encounters Description No Information Available Assessments Description No Information Available Plan of Treatment Future Appointment(s):07/01/2019 3:00 pm - Chadwick Guzman MD at [facility] Functional Status Description No Information Available Mental Status Description No Information Available Referrals Description No Information Available
--- OUTSIDE RECORDS SUMMARY | 2019-07-11 06:03 | XMS REPORT | Continuity of Care Document ---
:1950 External Reference #:[id number] Demographics Address [address] [place] [address] Home Phone [phone] Mobile Phone [phone] Email Address Preferred Language en Marital Status Not or Alevism Affiliation Unknown Race White Ethnic Group Not or Author Name Laura Leung PA Address [address] [place] [address] Care Team Providers Name Role Phone Shannen Berman PA - Physician Care Team Information Level Vial Grinder Brick Paver Davey Menard MD - Endocrinology, Care Team Information Level Vial Grinder [phone] Diabetes & Metabolism Geovani Hassan - Foot Surgery Care Team Information Level Vial Grinder [phone] David Goncalves MD - Family Medicine Care Team Information Level Vial Grinder [phone] Problems Active Problems Provider Date Testicular hypofunction [...] neoplasm of colon Tammy Whitney M.D. Onset: 10/11/ 2017 Type 2 diabetes mellitus with diabetic Tammy [...] Smoker quit 1886 Unknown Smoking Status Reviewed: 06/18/19 Former Cigarette Smoker quit 1886 ETOH Use Denies alcohol use Tobacco Use Start: Unknown End: Patient is a former smoker quit 1986 Unknown Recreational Drug Use Denies Drug Use Allergies, Adverse Reactions, Alerts Active Allergies Reaction Severity Comments Date Thorazine agitation 12/29/2015 Chlorpromazine anxious 04/10/2018 Mellaril agitation 12/29/2015 Thioridazine anxious 04/10/2018 Medications Active Medications SIG Qnty Indications Ordering Date Provider Aspirin Adult 1 PO qd 90tabs E11.9 Rashad, 05/30/2019 325mg Milton Persaud M.D., Tablets [facility] Levothyroxine Sodium 1 tab by mouth 90tabs E03.9 Rashad, 02/25/2019 every day as Milton Persaud M.D., 88mcg Tablets directed [facility] Metoprolol Tartrate take one tablet by 180tabs Rashad, 06/25/2018 mouth twice a day Milton Persaud M.D., 50mg Tablets [facility] Amiodarone HCL 1 Tablet Once A 30tabs Mimi Valerio 06/05/2018 200mg Day Simonetta, MSN, Tablets [facility] Pravastatin Sodium Take One Tablet By 90tabs David Goncalves MD 04/06/2018 Mouth Every Day 20mg Tablets Metformin HCL 1 by mouth twice a 180tabs E11.9 Rashad, 12/28/2016 1000mg day Milton Persaud M.D., Tablets [facility] Enalapril Maleate Take One Tablet By 90tabs Romina Sutton, 11/22/2016 Mouth Every Day 20mg Tablets Freestyle Lite Test test fingerstick 300units E11.9 Gill James, 2015 blood sugar three АЛЕКСАНДР-TIM, OZ, Strips times a day Ibclc Freestyle Lite [...] Unknown every day 50mg Tablets History Medications Eliquis 1 tab by 180tabs I48.0 Milton Solorzano 03/22/2019 - 5mg Tablets mouth twice Dary Persaud, [facility] 05/30/2019 daily Levothyroxine Sodium 1 by mouth 30tabs E03.9 Gill James, 12/25/2018 - every day PNP-BC, PHYSICAL EDUCATION AIDE, Ibclc 02/25/2019 75mcg Tablets Medications Administered in Office Medication SIG Qnty Indications Ordering Provider Date Depomedrol 40mg/1cc Jessica aBrajas MD 04/17/2019 (methylprednisolone acetate) Injection Depomedrol 40mg/1cc Jessica Barajas MD 01/17/2019 (methylprednisolone acetate) Injection Injection, testosterone Monse Rodriguez M.D. 11/01/2018 undecanoate, 1 mg- 750 units Injection Injection, testosterone Monse Rodriguez M.D. 08/20/2018 undecanoate, 1 mg- 750 units Injection Injection, testosterone Monse Rodriguez M.D. 06/08/2018 undecanoate, 1 mg- 750 units Injection Injection, Monse Wilks M.D. 02/27/2018 undecanoate, 1 mg- 750 units Injection Injection, testosterone Monse Rodriguez M.D. 01/30/2018 undecanoate, 1 mg- 750 units Injection Immunizations CPT Code Status Date Vaccine Lot # 72728 Given 10/03/2018 Pneumococcal Conjugate Vaccine 13 Valent For [id number] Intramuscular Use 81837 Given 12/29/2015 Pneumococcal Conjugate Vaccine 13 Valent For [id number] Intramuscular Use Q2038 Given 05/09/2014 Influenza Vaccine (Fluzone) Age 3 And Older 19811 Given Unknown Influenza Virus Vaccine, Quadrivalent, 36 Mos+, .5ML Vital Signs Date Vital Result Comment 06/18/2019 11:07am BP Systolic 112 mmHg BP Diastolic 68 mmHg Body Temperature 97.0 F Heart Rate 57 /min Respiratory Rate 18 /min Height 70 inches 5'10" Weight 209.00 lb BMI (Body Mass Index) 30.0 kg/m2 BSA (Body Surface Area) 2.13 m2 Edwards body weight in kilograms 75 kg O2 % BldC Oximetry 90 % 05/03/2019 9:25am BP Systolic Sitting Right Arm 99 mmHg BP Diastolic Sitting Right Arm 65 mmHg Heart Rate 76 /min Respiratory Rate 16 /min Height 70 inches 5'10" Weight 204.00 lb BMI (Body Mass Index) 29.3 kg/m2 BSA (Body Surface Area) 2.10 m2 Edwards body weight in kilograms 75 kg O2 % BldC Oximetry 94 % ra Results Test Acquired Date Facility Test Result H/L Range Note Comprehensive 06/18/[address] [facility] [address] Glucose 236 mg/dL High 74-106 1 Metabolic Panel [address] [place], [place] [id number] [phone] BUN 30 mg/dL High 7-18 Creatinine 1.7 mg/dL High 0.6-1.3 Glom Filtration Rate, Estimate 43 mL/min >60 If 51 mL/min >60 2 BUN/Creat 17.6 ratio Sodium 129 mmol/L Low [...] Phosphatase 245 U/L High 45-117 Glycohemoglobin 06/18/[address] Glycohemoglobin 8.3 % High 4.2-6.3 [address] (A1c) [place], [place] [id number] [phone] eAG 192 mg/dL Laboratory test 06/18/[address] Thyroid 2.18 Normal 0.30- 4.[address] Stim uIU/[place] [address] Hormone [phone] CBC W/Automated 06/18/[address] White Blood 15.8 K/uL High 3.4-10.[address] Count [place], [place] [address] [phone] Red Blood Count 4.41 M/uL Normal 4.20-5.80 [...] 33.0-73.0 Lymph % 5.2 % Low 20.0-42.0 [place] % 7.6 % Normal 0.0-10.0 Eo% 0.2 % Normal 0.0-6.6 Bas% 0.4 % Normal 0.0-1.1 Immature Grans 1.2 % Normal 0.0-5.0 NRBC % 0.0 /100WBC < 10/ 100 WBC Neut# 13.51 K/uL High 1.8-7.0 Lymph # 0.83 K/uL Low 1.0-4.0 [place] # 1.21 K/uL High 0.0-0.8 Eos # 0.03 K/uL Normal 0.0-0.5 Baso # 0.07 K/uL Normal 0.0-0.1 Immature Grans Absolute 0.19 K/uL NRBC # 0.00 K/uL Comprehensive Metabolic 03/22/2019 [facility] Glucose 232 mg/dL High 74-106 4 Panel [address] [place] [address] [phone] BUN 22 mg/dL High 7-18 Creatinine 1.2 mg/dL Normal 0.6-1.3 Glom Filtration Rate, Estimate >60 mL/min >60 If >60 mL/min >60 5 BUN/Creat 18.3 ratio Sodium 136 mmol/L Normal [...] Phosphatase 114 U/L Normal 45-117 Laboratory test 03/22/2019 [facility] Magnesium 2.1 mg/dL Normal 1.8-2.[address] [place] [address] [phone] CBC W/Automated 03/22/2019 [facility] White Blood 6.2 K/uL Normal 3.4-10.[address] Count [place], [place] [id number] [phone] Red Blood Count 4.32 M/uL Normal 4.20-5.80 [...] 33.0-73.0 Lymph % 19.4 % Low 20.0-42.0 [place] % 11.4 % High 0.0-10.0 Eo% 6.7 % High 0.0-6.6 Bas% 1.0 % Normal 0.0-1.1 Immature Grans 0.8 % Normal 0.0-5.0 NRBC % 0.0 /100WBC < 10/ 100 WBC Neut# 3.78 K/uL Normal 1.8-7.0 Lymph # 1.21 K/uL Normal 1.0-4.0 [place] # 0.71 K/uL Normal 0.0-0.8 Eos # 0.42 K/uL Normal 0.0-0.5 Baso # 0.06 K/uL Normal 0.0-0.1 Immature Grans Absolute 0.05 K/uL NRBC # 0.00 K/uL Laboratory test 02/22/2019 [facility] Thyroid 8.10 uIU/mL High 0.30-4.20 [address] [place] [address] Hormone [phone] Act Partial 12/24/[address] [facility] [address] Act Partial 30.3 Normal 23.4- 35.0 7 Thrombo Time [address] [place] [address] Time [phone] Anticoagulant Therapy? NO Protime 12/24/[address] [facility] [address] Protime 14.6 seconds High 12.0-14.[address] [place] [address] [phone] Inr 1.1 Normal 0.9-1.1 8 Anticoagulant Therapy? NO Glycohemoglobin 12/24/2018 [facility] Glycohemoglobin 7.4 % High 4.2-6.[address] (A1c) [place] [address] [phone] eAG 166 mg/dL Comprehensive Metabolic 12/24/2018 [facility] Glucose 132 mg/dL High 74-[address] [place], [place] [address] [phone] BUN 22 mg/dL High 7-18 Creatinine 1.9 mg/dL High 0.6-1.3 Glom Filtration Rate, Estimate 37 mL/min >60 If 45 mL/min >60 10 BUN/Creat 11.5 ratio Sodium 135 mmol/L Low 136-145 Potassium 5.8 mmol/L High 3.5-5.1 Chloride 101 mmol/L Normal 98-107 Carbon Dioxide 28 mmol/L Normal 21-32 Anion Gap 6 mEq/L Low 8-16 Calcium 9.7 mg/dL Normal 8.5-10.1 Total Protein 8.5 g/dL High 6.4-8.2 Albumin 3.9 g/dL Normal 3.4-5.0 Globulin 4.6 g/dL High 1.9-4.3 Alb/Glob 0.8 ratio Bilirubin,Total 0.4 mg/dL Normal 0.2-1.0 Sgot/Ast 26 U/L Normal 15-37 SGPT/Alt 44 U/L Normal 12-78 Alkaline Phosphatase 220 U/L High 45-117 CBC W/Automated 12/24/2018 [facility] White Blood 6.7 K/uL Normal 3.4-10.[address] Count [place], [place] [address] [phone] Red Blood Count 5.01 M/uL Normal 4.20-5.80 Hemoglobin 14.8 gm/dL Normal 12.8-17.0 Hematocrit 45.1 % Normal 38.0-48.0 Mean Cell Volume 90.0 fl Normal 80.0-96.0 Mean Corpuscular HGB 29.5 pg Normal 27.0-33.0 Mean Corpuscular HGB Conc 32.8 g/dL Normal 31.7-36.0 Platelet Count 334 K/uL Normal 155-360 Red Cell Distri Width SD 46.1 fl Normal 36-51 Red Cell Distri Width %CV 14.1 % Normal 11.6-15.8 Mean Platelet Volume 10.1 fl Normal 6.6-10.6 Neut% 60.2 % Normal 33.0-73.0 Lymph % 21.2 % Normal 20.0-42.0 [place] % 13.6 % High 0.0-10.0 Eo% 3.7 % Normal 0.0-6.6 Bas% 0.7 % Normal 0.0-1.1 Immature Grans 0.6 % Normal 0.0-5.0 NRBC % 0.0 /100WBC < 10/ 100 WBC Neut# 4.05 K/uL Normal 1.8-7.0 Lymph # 1.43 K/uL Normal 1.0-4.0 [place] # 0.92 K/uL High 0.0-0.8 Eos # 0.25 K/uL Normal 0.0-0.5 Baso # 0.05 K/uL Normal 0.0-0.1 Immature Grans Absolute 0.04 K/uL NRBC # 0.00 K/uL T7/TSH 12/24/2018 [facility] T3 Uptake 29 % Low 31-39 [address] [place] [address] [phone] Thyroxine (T4) 13.1 g/dL Normal 4.7-13.3 T7 3.80 g/dL Low 5.0-12.0 Thyroid Stim Hormone 4.78 uIU/mL High 0.30-4.20 1 E11.40 2 Note: Persistent reduction for 3 months or more in an eGFR <60 mL/min/1.73 m2 defines CKD. Patients with eGFR values >/=60 mL/min/1.73 m2 may also have CKD if evidence of persistent proteinuria is present. The original MDRD equation for estimated GFR is not valid for patients less than 18 years of age. Additional information may be found at www.kdoqi.org. 3 Elevated levels of HbA1c suggest the need for more aggressive treatment of glycemia. The [place] [employer] recommends that a primary goal of therapy should be a HbA1c of <7% and that physicians should re-evaluate the treatment regimen in patients with HbA1c values consistently >8%. 4 I48.0 5 Note: Persistent reduction for 3 months or more in an eGFR <60 mL/min/1.73 m2 defines CKD. Patients with eGFR values >/=60 mL/min/1.73 m2 may also have CKD if evidence of persistent proteinuria is present. The original MDRD equation for estimated GFR is not valid for patients less than 18 years of age. Additional information may be found at www.kdoqi.org. 6 E03.9 7 Z13.0 E03.9 Z01.818 E11.40 8 THERAPEUTIC INR RANGE: 2.0 - 3.0 DVT, Pulmonary embolus, prophylaxis against venous thrombosis or systemic embolization in high risk patients. 2.5 - 3.5 Mechanical heart valves 9 Elevated levels of HbA1c suggest the need for more aggressive treatment of glycemia. The [place] [employer] recommends that a primary goal of therapy should be a HbA1c of <7% and that physicians should re-evaluate the treatment regimen in patients with HbA1c values consistently >8%. 10 Note: Persistent reduction for 3 months or more in an eGFR <60 mL/min/1.73 m2 defines CKD. Patients with eGFR values >/=60 mL/min/1.73 m2 may also have CKD if evidence of persistent proteinuria is present. The original MDRD equation for estimated GFR is not valid for patients less than 18 years of age. Additional information may be found at www.kdoqi.org. Procedures Date Code Description Status 05/30/2019 38635 Doppler ECHO Color Flow Mapping Completed 05/30/2019 71246 Doppler Echocardiogram Complete Completed 05/30/2019 61663 Transesophageal Echocardiogram Completed 05/03/2019 99293 EKG-Tracing And Report Completed 04/17/2019 42694 Radiology, Shoulder: Two Views (Sso) Completed 04/17/2019 17973 Radiology, Shoulder: Two Views (Sso) Completed 04/17/2019 36366 Asp./Injection major joint Completed 03/22/2019 89533 [employer]plant[employer] Heart Rhythm Derived Completed Data 02/19/2019 23367 Doppler ECHO Color Flow Mapping Completed 02/19/2019 81842 Doppler Echocardiogram Complete Completed 02/19/2019 67141 Transesophageal Echocardiogram Completed 02/04/2019 27611 EKG-Tracing And Report Completed 01/17/2019 62135 Asp./Injection major joint Completed 12/24/2018 06806 Eye Exam Est Patient Comprehensive Completed Medical Devices Description No Information Available Encounters Type Date Location Provider Dx Diagnosis Office Visit 05/03/2019 Cardiology Office Jose Eduardo Rios Z95.9 Presence of 9:40a B., PA cardiac and vascular implant and graft, unsp I48.0 Paroxysmal atrial fibrillation I10 Essential (primary) hypertension G47.33 Obstructive sleep apnea (adult) (pediatric) Office Visit 03/22/2019 1:40p Cardiology Office Gabriel I48.0 Paroxysmal atrial Lus Fidel., PA fibrillation G47.33 Obstructive sleep apnea (adult) (pediatric) I10 Essential (primary) hypertension Q21.1 Atrial septal defect Office Visit 02/04/2019 2:30p Cardiology Office Pako Higgins, I48.0 Paroxysmal atrial MD fibrillation 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 hypofunction I10 Essential (primary) hypertension I48.91 Unspecified atrial fibrillation Office Visit 12/24/2018 3:15p Family Medicine David Goncalves, Z01.818 Encounter for other Sukhjinder CARLIN MD preprocedural examination M25.511 Pain in right shoulder Assessments Date Code Description Provider 06/18/2019 Z01.818 Encounter for other preprocedural Laura Leung PA examination 06/18/2019 E11.40 Type 2 diabetes mellitus with Laura Leung PA diabetic neuropathy, unspecifi 06/18/2019 Z95.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 PA implant and graft, unspecif 06/18/2019 I10 Essential (primary) hypertension Laura Leung, PA 06/18/2019 G47.33 Obstructive sleep apnea of adult Laura Leung PA 06/18/2019 E03.9 Hypothyroidism, unspecified MadhuLaura coronel, PA 05/30/2019 I48.0 Paroxysmal atrial fibrillation Milton Solorzano M.D., [facility] 05/03/2019 Z95.9 Presence of cardiac and vascular Gabriel, Marlyss B., PA implant and graft, unspecified 05/03/2019 I48.0 Paroxysmal atrial fibrillation Gabriel Marlyss B., PA 05/03/2019 I10 Essential (primary) hypertension Gabriel, Marlyss B., PA 05/03/2019 G47.33 Obstructive sleep apnea of adult Gabriel Kaylalyss B., PA 04/17/2019 M19.012 Primary osteoarthritis, left Jessica Barajas MD shoulder 04/17/2019 S46.002D Unspecified injury of muscle(s) and Jessica Barajas MD tendon(s) of the rotator cuff of left shoulder, subsequent encounter 04/17/2019 M75.42 Impingement syndrome of left Jessica Barajas MD shoulder 03/22/2019 Z95.9 Presence of cardiac and vascular Pako Higgins MD implant and graft, unspecified 03/22/2019 Z95.9 Presence of cardiac and vascular Gabriel, Marlyss B., PA implant and graft, unspecif 03/22/2019 I48.0 Paroxysmal atrial fibrillation Kayla Rioslyss B., PA 03/22/2019 I10 Essential (primary) hypertension Pako Higgins MD 03/22/2019 G47.33 Obstructive sleep apnea of adult GabrielKayla villagomezlyss B., PA 03/22/2019 R42 Dizziness and giddiness Pako Higgins MD 03/22/2019 R42 Dizziness and giddiness Gabriel Marlyss B., PA 03/22/2019 I10 Essential (primary) hypertension Gabriel, Marlyss B., PA 03/22/2019 I48.0 Paroxysmal atrial fibrillation Pako Higgins MD 03/22/2019 Q21.1 Atrial septal defect GabrielKayla villagomezlyss B., PA 03/22/2019 I48.0 Paroxysmal atrial fibrillation Gabriel, Marlyss B., PA 02/19/2019 I48.0 Paroxysmal atrial fibrillation Pako [...] I48.91 Unspecified atrial fibrillation Monse Rodriguez M.D. 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 WATCHMAN Closed 04/02/[address] [place] [address] [address] [facility] [place] [address] [phone]
--- OUTSIDE RECORDS SUMMARY | 2019-07-11 06:03 | XMS REPORT | Continuity of Care Document ---
:1950 External Reference #:[id number] Demographics Address [address] [place] [address] Home Phone [phone] Mobile Phone [phone] Preferred Language en Marital Status Not or Worship Affiliation Unknown Race White Ethnic Group Not or Author Name Tuilo Garsia DO MPH Address [facility], [address] [place] [address] Care Team Providers Name Role Phone aTmmy Whitney MD - Internal Medicine Care Team Information Cook Jelly Problems Description No Information Available Social History [...] as directed MPH chronic pain patient Evening [place] Oil Unknown 500mg Capsules Vitamin B-12 si [...] Available Vital Signs Date Vital Result Comment 05/10/2019 8:50am BP Systolic 130 mmHg BP Diastolic 78 mmHg Heart Rate 74 /min Respiratory Rate 20 /min Height 70 inches 5'10" Weight 208.00 lb Pain Level 7 Pain at this time. Pain Level With Medicine 6 on average with meds Pain Level Without Medicine 9 without meds BMI (Body Mass Index) 29.8 kg/m2 04/09/2019 8:57am BP Systolic 130 mmHg BP Diastolic 84 mmHg Heart Rate 86 /min Respiratory Rate 20 /min Height 70 inches 5'10" Weight 206.00 lb Pain Level 7 Pain at this time. Pain Level With Medicine 6 on average with meds Pain Level Without Medicine 9 without meds BMI (Body Mass Index) 29.6 kg/m2 Results Description No Information Available Procedures Date Code Description Status 04/09/2019 72258 Omt 1-2 Body Regions Completed 03/12/2019 30121 Omt 1-2 Body Regions Completed 02/05/2019 83987 Therapeutic, Prophylactic Or Diagnostic Injection Subq/Im Completed 01/07/2019 30000 Omt 1-2 Body Regions Completed Medical Devices Description No Information Available Encounters Type Date Location Provider Dx Diagnosis Office Visit 04/09/2019 Main Office as Of Tulio Garsia DO G89.21 Chronic pain due 9:30a 07/20/13 MPH to trauma M54.5 Low back pain M25.511 Pain in right shoulder M99.07 Segmental and somatic dysfunction of upper extremity 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 Office Visit 03/12/2019 9:15a Main Office as Tulio Garsia G89.21 Chronic pain due Of 07/20/13 DO, MPH to trauma M54.5 Low back pain M25.511 Pain in right shoulder M99.07 Segmental and somatic dysfunction of upper extremity Z79.891 retirement (current) use of opiate analgesic Z79.891 retirement (current) use of opiate analgesic Office Visit 02/05/2019 9:15a Main Office as Tulio Garsia G89.21 Chronic pain due Of 07/20/13 DO, MPH to trauma M54.5 Low back pain M96.1 Postlaminectomy syndrome, not elsewhere classified Z79.891 retirement (current) use of opiate analgesic R53.83 Other fatigue 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 Office Visit 01/07/2019 9:00a Main Office as Tulio Garsia G89.21 Chronic pain due Of 07/20/13 DO, MPH to trauma M54.5 Low back pain M96.1 Postlaminectomy syndrome, not elsewhere classified M25.511 Pain in right shoulder M99.07 Segmental and somatic dysfunction of upper extremity 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 Z79.891 retirement (current) use of opiate analgesic Office Visit 12/05/2018 9:30a Main Office as Tulio Garsia G89.21 Chronic pain due Of 07/20/13 DO, MPH to trauma M96.1 Postlaminectomy syndrome, not elsewhere classified M54.5 Low back pain 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 Z79.891 retirement (current) use of opiate analgesic Assessments Date Code Description Provider 05/10/2019 G89.21 Chronic pain due to trauma Garsia, Tulio, DO, MPH 05/10/2019 M54.5 Low back pain Garsia, Tulio, DO, MPH 05/10/2019 M25.511 Pain in right shoulder Garsia, Tulio, DO, MPH 05/10/2019 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 Garsia, Tulio , DO, MPH 05/10/2019 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 Garsia, Tulio , DO, MPH 04/09/2019 G89.21 Chronic pain due to trauma Garsia, Tulio, DO, MPH 04/09/2019 M54.5 Low back pain Garsia, Tulio, DO, MPH 04/09/2019 M25.511 Pain in right shoulder Garsia, Tulio, DO, MPH 04/09/2019 M99.07 Segmental and somatic dysfunction of upper Garsia, Tulio, DO, MPH extremity 04/09/2019 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 Garsia, Tulio , DO, MPH 04/09/2019 Z79.891 retirement (current) use of opiate analgesic Garsia, Tulio , DO, MPH 03/12/2019 G89.21 Chronic pain due to trauma Garsia, Tulio, DO, MPH 03/12/2019 M54.5 Low back pain Garsia, Tulio, DO, MPH 03/12/2019 M25.511 Pain in right shoulder Garsia, Tulio, DO, MPH 03/12/2019 M99.07 Segmental and somatic dysfunction of upper Garsia, Tulio, DO, MPH extremity 03/12/2019 Z79.891 retirement (current) use of opiate analgesic Garsia, Tulio , DO, MPH 03/12/2019 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 Garsia, Tulio , DO, MPH 02/05/2019 G89.21 Chronic pain due to trauma Garsia, Tulio, DO, MPH 02/05/2019 M54.5 Low back pain Garsia, Tulio, DO, MPH 02/05/2019 M96.1 Postlaminectomy syndrome, not elsewhere GarsiaBailee retanaph, DO, MPH classified 02/05/2019 Z79.891 retirement (current) use of opiate analgesic GarsiaBailee retanaph , DO, MPH 02/05/2019 R53.83 Other fatigue GarsiaBailee retanaph, DO, MPH 02/05/2019 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 Garsia, Tulio , DO, MPH 01/07/2019 G89.21 Chronic pain due to trauma GarsiauTlio retana, DO, MPH 01/07/2019 M54.5 Low back pain GarsiaTulio retana, DO, MPH 01/07/2019 M96.1 Postlaminectomy syndrome, not elsewhere GarsiaBailee retanaph, DO, MPH classified 01/07/2019 M25.511 Pain in right shoulder GarsiaTulio retana DO, MPH 01/07/2019 M99.07 Segmental and somatic dysfunction of upper GarsiaTulio retana DO, MPH extremity 01/07/2019 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 GarsiaBailee retanaph , DO, MPH 01/07/2019 Z79.891 retirement (current) use of opiate analgesic Garsia, Tulio , DO, MPH 12/05/2018 G89.21 Chronic pain due to trauma GarsiaTulio retana DO, MPH 12/05/2018 M96.1 Postlaminectomy syndrome, not elsewhere GarsiaTulio retana, DO, MPH classified 12/05/2018 M54.5 Low back pain Tulio Garsia DO, MPH 12/05/2018 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 Symptoms and complaints discussed and reviewed today. No significant changes in physical findings. Continue current medical pain management.M54.5 Low back painComments:Chronic. Symptoms and complaints discussed and reviewed today.No changes in physical findings. Patient is stable and comfortable when current medical therapy is rendered.M25.511 Pain in right shoulderComments:Chronic. Symptoms and complaints discussed and reviewed today. No significant changes in physical findings. Continue current medical pain management.Z79.891 retirement (current) use of opiate analgesicNew Labs:Urine Drug Screen, Ordered: 05/10/19Comments:Urine drug screen sample taken. Rapid Point of [...] TAPEN, XTSY, ZOLP. A urine drug test (UDT) using a rapid screen cup was ordered for this patient and collected on site today. Creatinine has been ordered as well for specimen validity, not for kidney function. Urine Drug Testing is a mandatory component of chronic opioid management, as part of the baseline assessment and ongoing re- assessment of opioid therapy. Per [place] [employer], [place] Non-Acute Pain Medical Treatment Guidelines, section F.3.d.i. 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 Importance of regular nutrition throughout the day discussed.Activity as toleratedContinue with PCP Functional Status Description No Information Available Mental Status Description No Information Available Referrals Description No Information Available
--- OUTSIDE RECORDS SUMMARY | 2019-07-11 06:03 | XMS REPORT | Continuity of Care Document ---
:1950 External Reference #:[id number] Demographics Address [address] [place] [address] Home Phone [phone] Mobile Phone [phone] Email Address Preferred Language en Marital Status Not or Tenriism Affiliation Unknown Race White Ethnic Group Not or Author Name David Goncalves MD Address [address] [place] [address] Care Team Providers Name Role Phone Shannen Berman PA - Physician Care Team Information Immigration Law Specialist Top Lift Nailer Davey Menard MD - Endocrinology, Care Team Information Immigration Law Specialist [phone] Diabetes & Metabolism Geovani Hassan - Foot Surgery Care Team Information Immigration Law Specialist [phone] David Goncalves MD - Family Medicine Care Team Information Immigration Law Specialist Problems Active Problems Provider Date Testicular hypofunction [...] Screening for malignant neoplasm of colon Tammy Whiteny M.D. 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 Pravastatin Sodium Take One Tablet By [...] Gill James, 2015 blood sugar three PNP-BC, [employer]EN[employer]AL STORES ATTENDANT, Strips times a day Ibclc Freestyle [...] 90tabs E11.9 Milton Solorzano, 05/30/2019 - [place], [facility] 06/25/2019 325mg Tablets Eliquis 1 tab by mouth 180tabs I48.0 Milton Solorzano, 03/22/2019 - 5mg twice daily [place], [facility] 05/30/2019 Tablets Medications Administered in Office [...] CPT Code Status Date Vaccine Lot # 10469 Given 10/03/2018 Pneumococcal Conjugate Vaccine 13 Valent For [id number] Intramuscular Use 22066 Given 12/29/2015 Pneumococcal Conjugate Vaccine 13 Valent For [id number] Intramuscular Use Q2038 Given 05/09/2014 Influenza Vaccine (Fluzone) Age 3 And Older 87396 Given Unknown Influenza Virus Vaccine, Quadrivalent, 36 Mos+, .5ML Vital Signs Date Vital Result Comment 07/08/2019 11:33am BP Systolic 111 mmHg BP Diastolic 70 mmHg Body Temperature 97.0 F Heart Rate 63 /min Respiratory Rate 17 /min Height 70 inches 5'10" Weight 210.00 lb BMI (Body Mass Index) 30.1 kg/m2 BSA (Body Surface Area) 2.13 m2 Isabel body weight in kilograms 75 kg O2 % BldC Oximetry 95 % 07/02/2019 10:29am BP Systolic 111 mmHg BP Diastolic 68 mmHg Body Temperature 97.0 F Heart Rate 69 /min Respiratory Rate 16 /min Height 70 inches 5'10" Weight 208.00 lb BMI (Body Mass Index) 29.8 kg/m2 BSA (Body Surface Area) 2.12 m2 Isabel body weight in kilograms 75 kg Results Test Acquired Facility Test Result H/L Range Note Date Laboratory test 07/04/[address] [facility] [address] Potassium 4.0 mmol/L 3.5- 5.1 1 finding [address] [place] [address] [phone] CBC No Diff 06/26/2019 [facility] White Blood 8.8 Normal 3.5-10.8 [phone] Count 10^3/uL Red Blood Count 4.38 10^6/uL Normal 4.18-5.48 Hemoglobin 14.4 g/dL Normal 14.0-18.0 Hematocrit 41 % Low 42-52 Mean Corpuscular Volume 93 fL Normal 80-94 Mean Corpuscular Hemoglobin 33 pg High 27-31 Mean Corpuscular HGB Conc 35 g/dL Normal 31-36 Red Cell Distribution Width 14 % Normal 10-15 Platelet Count 356 10^3/uL Normal 150-450 Mean Platelet Volume 7.8 fL Normal 7.4-10.4 Inr/Protime 06/26/2019 [facility] Inr 1.09 Normal 0.82-1.09 2 [phone] Laboratory test 06/26/2019 [facility] Activated 34.5 Normal 26.0-38.0 finding [phone] Partial seconds Thrombo Time Urinalysis 06/26/2019 [facility] Urine Color [place] Profile [phone] Urine Appearance Cloudy Urine Specific [place] 1.019 Normal 1.010-1.030 Urine pH 5.0 Normal 5-9 Urine Urobilinogen Negative Negative Urine Ketones Negative Negative Urine Protein Negative Negative Urine Leukocytes Negative Negative Urine Blood Negative Negative Urine Nitrite Negative Negative Urine Bilirubin Negative Negative Urine Glucose Negative Negative Basic Metabolic 06/26/2019 [facility] Sodium 135 mmol /L Normal 135-145 Panel [phone] Chloride 101 mmol/L Normal 101-111 Co2 Carbon Dioxide 27 mmol/L Normal 22-32 Glucose 144 mg/dL High 70-100 Blood Urea Nitrogen 23 mg/dL Normal 6-24 Creatinine 1.31 mg/dL High 0.67-1.17 BUN/Creatinine Ratio 17.6 Normal 8-20 Calcium 9.1 mg/dL Normal 8.6-10.3 Egfr Non- 54.1 >60 Egfr 65.5 >60 3 Potassium 5.7 mmol/L High 3.5-5.0 Anion Gap 7 mmol/L Normal 2-11 Type & Screen 06/26/2019 [facility] Patient Blood O Positive [phone] Type Antibody Screen NEGATIVE Laboratory test 06/18/[address] Thyroid 2.18 Normal 0.30- 4.[address] Stim uIU/[place] [address] Hormone [phone] CBC W/Automated 06/18/[address] White Blood 15.8 K/uL High 3.4-10.[address] [place] [address] [phone] Red Blood Count 4.41 M/uL Normal 4.20-5.80 [...] 33.0-73.0 Lymph % 5.2 % Low 20.0-42.0 [place] % 7.6 % Normal 0.0-10.0 Eo% 0.2 % Normal 0.0-6.6 Bas% 0.4 % Normal 0.0-1.1 Immature Grans 1.2 % Normal 0.0-5.0 NRBC % 0.0 /100WBC < 10/ 100 WBC Neut# 13.51 K/uL High 1.8-7.0 Lymph # 0.83 K/uL Low 1.0-4.0 [place] # 1.21 K/uL High 0.0-0.8 Eos # 0.03 K/uL Normal 0.0-0.5 Baso # 0.07 K/uL Normal 0.0-0.1 Immature Grans Absolute 0.19 K/uL NRBC # 0.00 K/uL Glycohemoglobin 06/18/[address] Glycohemoglobin 8.3 % High 4.2-6.3 5 A1c [address] [facility] (A1c) [place] [address] [phone] eAG 192 mg/dL Comprehensive Metabolic 06/18/2019 [facility] [address] Glucose 236 mg/dL High 74-106 Panel [address] [place] [address] [phone] BUN 30 mg/dL High 7-18 Creatinine 1.7 mg/dL High 0.6-1.3 Glom Filtration Rate, Estimate 43 mL/min >60 If 51 mL/min >60 6 BUN/Creat 17.6 ratio Sodium 129 mmol/L Low [...] 12-78 Alkaline Phosphatase 245 U/L High 45-117 CBC W/Automated 03/22/2019 [facility] White Blood 6.2 K/uL Normal 3.4-10.5 [address] [place] [address] [phone] Red Blood Count 4.32 M/uL Normal 4.20-5.80 [...] 33.0-73.0 Lymph % 19.4 % Low 20.0-42.0 [place] % 11.4 % High 0.0-10.0 Eo% 6.7 % High 0.0-6.6 Bas% 1.0 % Normal 0.0-1.1 Immature Grans 0.8 % Normal 0.0-5.0 NRBC % 0.0 /100WBC < 10/ 100 WBC Neut# 3.78 K/uL Normal 1.8-7.0 Lymph # 1.21 K/uL Normal 1.0-4.0 [place] # 0.71 K/uL Normal 0.0-0.8 Eos # 0.42 K/uL Normal 0.0-0.5 Baso # 0.06 K/uL Normal 0.0-0.1 Immature Grans Absolute 0.05 K/uL NRBC # 0.00 K/uL Laboratory test 03/22/2019 [facility] Magnesium 2.1 mg/dL Normal 1.8-2.4 finding [address] [place], [place] [address] [phone] Comprehensive 03/22/2019 [facility] Glucose 232 mg/dL High 74-106 Metabolic Panel [address] [place] [address] [phone] BUN 22 mg/dL High 7-18 Creatinine 1.2 mg/dL Normal 0.6-1.3 Glom Filtration Rate, Estimate >60 mL/min >60 If >60 mL/min >60 8 BUN/Creat 18.3 ratio Sodium 136 mmol/L Normal [...] 114 U/L Normal 45-117 Laboratory test 02/22/2019 [facility] Thyroid Stim 8.10 uIU/mL High 0.30-4.20 9 finding [address] [place] [address] [phone] 1 E87.5 2 Standard intensity warfarin therapeutic range: 2.0-3.0 High intensity warfarin therapeutic range: 2.5-3.5 3 Because ethnic data is not always readily [...] 15-29 5 Kidney failure <15 (or dialysis) 4 E11.40 5 Elevated levels of HbA1c suggest the need for more aggressive treatment of glycemia. The [place] [employer] recommends that a primary goal of therapy should be a HbA1c of <7% and that physicians should re-evaluate the treatment regimen in patients with HbA1c values consistently >8%. 6 Note: Persistent reduction for 3 months or more in an eGFR <60 mL/min/1.73 m2 defines CKD. Patients with eGFR values >/=60 mL/min/1.73 m2 may also have CKD if evidence of persistent proteinuria is present. The original MDRD equation for estimated GFR is not valid for patients less than 18 years of age. Additional information may be found at www.kdoqi.org. 7 I48.0 8 Note: Persistent reduction for 3 months or more in an eGFR <60 mL/min/1.73 m2 defines CKD. Patients with eGFR values >/=60 mL/min/1.73 m2 may also have CKD if evidence of persistent proteinuria is present. The original MDRD equation for estimated GFR is not valid for patients less than 18 years of age. Additional information may be found at www.kdoqi.org. 9 E03.9 Procedures Date Code Description Status 05/30/2019 25979 Doppler ECHO Color Flow Mapping Completed 05/30/2019 52610 Doppler Echocardiogram Complete Completed 05/30/2019 45397 Transesophageal Echocardiogram Completed 05/03/2019 52844 EKG-Tracing And Report Completed 04/17/2019 84083 Radiology, Shoulder: Two Views (Sso) Completed 04/17/2019 42976 Radiology, Shoulder: Two Views (Sso) Completed 04/17/2019 42527 Asp./Injection major joint Completed 03/22/2019 85409 Implantable [employer] Heart Rhythm Derived Completed Data 02/19/2019 72861 Doppler ECHO Color Flow Mapping Completed 02/19/2019 14315 Doppler Echocardiogram Complete Completed 02/19/2019 34156 Transesophageal Echocardiogram Completed 02/04/2019 68439 EKG-Tracing And Report Completed 01/17/2019 27229 Asp./Injection major joint Completed Medical Devices Description No Information Available Encounters Type Date Location Provider Dx Diagnosis Office Visit 07/08/2019 Family Medicine David Goncalves MD Z01.818 Encounter for other 11:30a [place] TESFAYE preprocedural examination Office Visit 07/02/2019 Family Medicine David Goncalves MD E87.5 Hyperkalemia 10:50a [place] [address] E03.9 Hypothyroidism, unspecified I10 Essential (primary) hypertension E11.40 Type 2 diabetes mellitus with diabetic neuropathy, unsp I48.0 Paroxysmal atrial fibrillation Z01.818 Encounter for other preprocedural examination Office Visit 06/18/2019 11:30a Family [facility] Madhu Z01.818 Encounter for other [place] VIVIANA Hines preprocedural examination E11.40 Type 2 diabetes mellitus [...] Higgins, I48.0 Paroxysmal atrial MD fibrillation 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 Z95.9 Presence of [...] atrial fibrillation Assessments Date Code Description Provider 07/08/2019 Z01.818 Encounter for other preprocedural David Goncalves MD examination 07/02/2019 E87.5 Hyperkalemia David Goncalves MD 07/02/2019 E03.9 Hypothyroidism, unspecified David Goncalves MD 07/02/2019 I10 Essential (primary) hypertension David Goncalves MD 07/02/2019 E11.40 Type 2 diabetes mellitus with David Goncalves MD diabetic neuropathy, unspecifi 07/02/2019 I48.0 Paroxysmal atrial fibrillation David Goncalves MD 07/02/2019 Z01.818 Encounter for other preprocedural David Goncalves MD examination 06/18/2019 Z01.818 Encounter for other preprocedural Laura Leung PA examination 06/18/2019 E11.40 Type 2 diabetes mellitus with Laura Leung PA diabetic neuropathy, unspecifi 06/18/2019 Z95.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 PA implant and graft, unspecif 06/18/2019 I10 Essential (primary) hypertension Laura Leung PA 06/18/2019 G47.33 Obstructive sleep apnea of adult Laura Leung PA 06/18/2019 E03.9 Hypothyroidism, unspecified Laura Leung, PA 05/30/2019 I48.0 Paroxysmal atrial fibrillation Milton Solorzano M.D., [facility] 05/03/2019 Z95.9 Presence of cardiac and vascular Gabriel, Marlyss B., PA implant and graft, unspecified 05/03/2019 I48.0 Paroxysmal atrial fibrillation Gabriel, Marlyss B., PA 05/03/2019 I10 Essential (primary) hypertension Gabriel, Marlyss B., PA 05/03/2019 G47.33 Obstructive sleep apnea of adult Gabriel Marlyss B., PA 04/17/2019 M19.012 Primary osteoarthritis, left [...] graft, unspecif 03/22/2019 I48.0 Paroxysmal atrial fibrillation GabrielLu villagomezs B., PA 03/22/2019 I10 Essential (primary) hypertension Pako Higgins MD 03/22/2019 G47.33 Obstructive sleep apnea of adult Gabriel Jose Eduardo B., PA 03/22/2019 R42 Dizziness and giddiness Pako Higgins MD 03/22/2019 R42 Dizziness and giddiness Lu Rioss B., PA 03/22/2019 I10 Essential (primary) hypertension Lu Rioss B., PA 03/22/2019 I48.0 Paroxysmal atrial fibrillation Pako Higgins MD 03/22/2019 Q21.1 Atrial septal defect Lu Rioss B., PA 03/22/2019 I48.0 Paroxysmal atrial fibrillation [...] Monse Rodriguez M.D. Plan of Treatment Future Appointment(s):09/11/2019 10:10 am - David Goncalves MD at [facility] RD11/01/2019 1:20 pm - Jose Eduardo Rios PA at Cardiology [id number] 10:45 am - Filipe Wright MD at Ophthalmology Functional Status Functional Condition Comment Date Status Slow with ambulating Active uses cane Active Mental Status Description No Information Available Referrals Refer to Dr Reason for Referral Status Appt Date Koko Garcia MD reverse TSA consideration for R shoulder Created [facility] [address] [place] [address] [phone] [place], Noel Dan M.D. WATCHMAN Closed 04/02/2019 [facility] [facility] [address] [place], [place] [address] [phone]
[2019-07-11] MEDS ORDERED: ceFAZolin 2 GM PREMIX in ORs 2 GM/50 ML BAG ONE ×2 (06:25→12:10)
[2019-07-11] MEDS ORDERED: Buffered Lidocaine 1% SYRIN* 1 ML/SYRINGE INTRADERM ONE (06:26)
[2019-07-11] MEDS ORDERED: Famotidine IV* 10 MG/ML 2 ML (20 mg) ONE (06:26)
[2019-07-11] MEDS ORDERED: Bupivacaine 0.25% EPI 200,000* 30 ML SDV ONE (06:51)
[2019-07-11] MEDS ORDERED: Bacitracin INJECTION* 50,000 UNITS ONE ×2 (06:51→14:15)
[2019-07-11 07:13] LABS: Calcium 8.8 mg/dL (8.6-10.3); EGFR African American 64.3 (>60); EGFR Non-African American 53.2 (>60); Potassium 4.7 mmol/L (3.5-5.0)
[2019-07-11] MEDS ORDERED: Midazolam* 1 MG/ML 5 ML VIAL (5 MG) ONE (07:43)
[2019-07-11] MEDS ORDERED: fentaNYL* 50 MCG/ML 2 ML VIAL (100 MCG VIAL) ONE (07:43)
[2019-07-11] MEDS ORDERED: Morphine 10 MG/ML VIAL (1 ml) ONE ×3 (08:28→12:44)
[2019-07-11] MEDS ORDERED: Propofol* 500 MG/50 ML BTL ONE ×2 (08:33→11:47)
[2019-07-11] MEDS ORDERED: KETAMINE HCL* 50 MG/ML 10 ML VIAL ONE (08:36)
[2019-07-11] MEDS ORDERED: Rocuronium* 10 MG/ML VIAL ONE (10:21)
[2019-07-11] MEDS ORDERED: Naloxone* 0.4 MG/ML 1 ML VIAL IV PRN (12:17)
[2019-07-11] MEDS ORDERED: Propofol* 10 MG/ML 20 ML BTL ONE ×2 (12:17→13:02)
[2019-07-11] MEDS ORDERED: oxyCODONE/Acetamin 5/325 MG* TAB PO PRN (12:17)
[2019-07-11] MEDS ORDERED: Ondansetron INJ* 2 MG/ML VIAL IV PRN (15:21)
[2019-07-11] MEDS ORDERED: Acetaminophen TAB* 325 MG PO PRN (15:21)
[2019-07-11] MEDS ORDERED: HYDROmorphone TAB* 4 MG PO PRN (15:21)
[2019-07-11] MEDS ORDERED: Magnesium Hydroxide LIQ* 30 ML UDC PO PRN (15:21)
[2019-07-11] MEDS ORDERED: HYDROmorphone INJ1* 1 MG/ML SYRINGE ONE ×2 (15:50→16:35)
[2019-07-11] MEDS: HYDROmorphone INJ1* 1 MG/ML SYRINGE IV PRN ×5 (15:50→17:06)
[2019-07-11] MEDS ORDERED: Dextrose 50% Syringe 50 ML* 25 GM/50 ML SYRINGE IV PUSH PRN (16:46)
[2019-07-11] MEDS ORDERED: Morphine 4 MG/ML VIAL (1 ml) 4 MG/ML VIAL ONE (17:24)
[2019-07-11] MEDS ORDERED: Midazolam* 1 MG/ML 2 ML VIAL (2 MG) ONE (17:36)
--- NOTE | 2019-07-11 17:56 | CONSULT ---
Consult Consult: July 11, 2019 INPATIENT PAIN CONSULTATION Joey Cerda is a 68 year old male. He was injured in a work related accident on October 31, 1988. He has had low back pain since that time. He had two back surgeries done by Dr. Campos in 1988-? He had gradual recurrence of his low back pain. He had been seen by Dr. Blas Mosher in 2012. He was thought to be a candidate for a spinal cord stimulator but never received it. He had no further surgeries. He was having increasing pain radiating to his legs, left much more than right. He sees Dr. Garsia for pain management and usually takes MS Contin 30 mg TID and Dilaudid 4 mg tablets five times a day. He is also on Gralise (gabapentin) 600 mg TID. He was sent to Dr. Guzman for worsening pain. He had a new MRI of his lumbar spine in August 2018 showing a spondylolisthesis at L5/S1 with bilateral neural foraminal stenosis at L5/S1. He had an EMG showing a chronic right radiculopathy at L5, and chronic left radiculopathies at L5 and S1. He was admitted to [facility] today and underwent a left L4/5 and L5/S1 MIS TLIF with PEEK interbody cages. I have been asked to assist with pain management PAST MEDICAL HISTORY: Atrial fibrillation, had Watchman device in April. Diabetes Mellitus, HTN, DPN, hypothyroidism, CKD, hypogonadism Allergies Allergy/AdvReac Type Severity Reaction Status Date / Time chlorpromazine AdvReac Agitation Verified 07/11/19 06:51 [From Thorazine] thioridazine [From Mellaril] AdvReac Agitation Verified 07/11/19 06:51 Current Medications Acetaminophen (Tylenol Tab*) 650 mg PO Q4H PRN PRN Reason: MILD PAIN or TEMP > 100.4 Aspirin (Aspirin 81 Mg Chew Tab*) 81 mg PO QAM [facility] Dextrose (D50w Syringe 50 Ml*) 12.5 gm IV PUSH .FOR FS < 60 - SS PRN PRN Reason: FS < 60 Duloxetine HCl (Cymbalta Cap*) 60 mg PO BID [facility] Famotidine (Pepcid Iv*) 20 mg IV ONCE ONE Stop: 07/11/19 06:01 Last Admin: 01/23/20 06:51 Dose: 20 mg Hydromorphone HCl (Dilaudid Inj1s*) 0.4 mg IV Q10M PRN PRN Reason: PAIN - SEVERE Last Admin: 07/11/19 17:06 Dose: 0.4 mg Hydromorphone HCl (Dilaudid Tab*) 4 mg PO Q4H PRN PRN Reason: PAIN - SEVERE Lactated Ringer's (Lactated Ringers 1000 Ml Bag*) 1,000 mls @ 125 mls/hr IV PER RATE [facility] Last Admin: 07/11/19 06:51 Dose: 125 mls/hr Insulin Human Lispro (Humalog*) 0 units SUBCUT AC [facility]; Protocol Lidocaine/Sodium Bicarbonate (Buffered Lidocaine 1% Syrin*) 0.2 ml INTRADERM ONCE ONE Stop: 07/10/19 10:21 Magnesium Hydroxide (Milk Of Magnethan Liq*) 30 ml PO DAILY PRN PRN Reason: CONSTIPATION Naloxone HCl (Narcan*) 0.08 mg IV Q2M PRN PRN Reason: severe induced resp depression Non-Formulary Medication (Amiodarone Hcl) 200 mg PO QAM [facility] Non-Formulary Medication (Amitriptyline Hcl [Amitriptyline Hcl-]) 75 mg PO BEDTIME [facility] Non-Formulary Medication (Cardizem Cd Cap*) 240 mg PO QAM [facility] Non-Formulary Medication (Gabapentin [Gralise]) 1,800 mg PO QAM [facility] Non-Formulary Medication (Levothyroxine Tab*) 88 mcg PO QAM [facility] Non-Formulary Medication (Metoprolol Tartrate Tab*) 50 mg PO BID [facility] Ondansetron HCl (Zofran Inj*) 4 mg IV Q6H PRN PRN Reason: NAUSEA/VOMITING Oxycodone/Acetaminophen (Percocet 5/325 Tab*) 1 tab PO ONCE PRN PRN Reason: PAIN - MODERATE Pravastatin Sodium (Pravachol (Nf)) 20 mg PO QAM [facility]; Protocol SOCIAL HISTORY: Non smoker, non drinker, smokes marijuana several times a month (at least). Lives in a trailer in [facility], trailer does not have electricity. Was at the [facility] last summer for a few weeks. Vital Signs Temp Pulse Resp BP Pulse Ox 97.7 F 106 13 149/74 97 07/11/19 14:49 07/11/19 17:45 07/11/19 17:45 07/11/19 17:45 07/11/19 17:45 EXAM: GENERAL: In minimal distress HEENT: Periorbital edema LUNGS: CLear anteriorly HEART: Tachycardic, reg rhythm ABDOMEN: Soft EXTREMITIES: normal tone NEUROLOGIC: Drowsy but arousable. Moves 4 extremities ASSESSMENT: 1. Left L4/5, L5/S1 MIS TLIF 2. Chronic opioid use PLAN: When he is able to take PO, will resume MS Contin and Dilaudid, he will need 6-8 mg of dilaudid. May benefit from Ativan overnight. I will d/c Percocet , add Colace and Senokot and change Gralise to gabapentin short acting. I will follow
[2019-07-11] MEDS ORDERED: HYDROmorphone TAB* 2 MG PO PRN (18:00)
[2019-07-11] MEDS ORDERED: LORazepam TAB(*) 1 MG PO PRN (18:02)
[2019-07-11] MEDS ORDERED: Senna TAB 8.6 mg* TAB PO PRN (18:05)
--- NOTE | 2019-07-11 19:11 | PN ---
Progress Note - Progress Note Date of Service: 07/11/19 SOAP: Subjective: [] Patient tolerated procedure well. In ICU for monitoring. Pain is well controlled. Objective: []VSS Wounds s,c,d AAOx3 LUISA, CN II-XII grossly intact. Motor 5/5 all extremities Sensory grossly intact to light touch except decreased to light touch left LE bellow thigh and RLE bellow knee, similar to preop exam. Assessment: []68 yom POD#0 Left L4-5, L5-S1 MIS TLIF Plan: []Monitor VS, Neurochecks Encourage ambulation. Monitor in ICU ON per IM. XR of Lumbar spine in am. Appreciate IM, Dr Mccabe's care. Cristhian Guzman MD
[2019-07-11] MEDS: Morphine TAB Extended Release (*) 30 MG TAB.ER PO SCH (19:38)
[2019-07-11] MEDS: Insulin LISPRO* 1 UNITS UNIT SUBCUT SCH (20:07)
[2019-07-11] MEDS: HYDROmorphone TAB* 4 MG PO PRN (20:17)
[2019-07-11] MEDS ORDERED: Amitriptyline TAB* 50 MG PO SCH (21:00)
--- NOTE | 2019-07-11 21:15 | CONS ---
CC: Dr. David Goncalves; Dr. Garsia; Dr. Chadwick Guzman * CONSULTATION REPORT: DATE OF CONSULTATION: 07/11/19 PRIMARY CARE PROVIDER: Dr. David Goncalves. OTHER PROVIDER: Dr. Garsia. REQUESTING PHYSICIAN IN CONSULTATION: Dr. Chadwick Guzman. ATTENDING PHYSICIAN: Dr. Heidy Washburn (dictated by VIVIANA Waddell). REASON FOR CONSULTATION: Co-medical management. HISTORY OF PRESENT ILLNESS: Mr. Cerda is a 68-year-old male with a past medical history of diabetes mellitus, not on insulin; hypertension; paroxysmal atrial fibrillation, status post Watchman placement; chronic pain, who presented to [facility] today for an elective TLIF of L4-L5 and L5-S1, performed by Dr. Guzman. The patient suffered a disabling back injury in 1988 while working and subsequently has had 2 previous back surgeries, this is now his third back surgery. He is seen postoperatively in the PACU. The patient is seen with eyes closed and moaning. He does not respond to any questions answered, only moans, therefore the history and physical are limited. PAST MEDICAL HISTORY: 1. Diabetes mellitus, not on insulin. 2. Hypertension. 3. Atrial fibrillation, status post Watchman placement, 05/30/19. 4. Hyperlipidemia. 5. Parkinson's disease. 6. Hypothyroidism. 7. Chronic pain. PAST SURGICAL HISTORY: Obtained from chart: 1. Right shoulder. 2. Lumbar surgeries. 3. Bilateral carpal tunnel release. 4. Tonsillectomy. 5. Finger surgery. 6. Deviated septum. 7. Watchman. HOME MEDICATIONS: 1. Amiodarone 200 mg p.o. daily. 2. Amitriptyline 75 mg p.o. at bedtime. 3. Aspirin 81 mg p.o. daily. 4. Cardizem 240 mg p.o. daily. 5. Diclofenac epolamine 1 tab p.o. q.12 hours. 6. Diclofenac potassium 50 mg p.o. t.i.d. 7. Duloxetine DR 60 mg p.o. b.i.d. 8. Enalapril 20 mg p.o. daily. 9. Gabapentin 1800 mg p.o. q.a.m. 10. Hydromorphone 4 mg p.o. q.4 hours p.r.n. 11. Levothyroxine 88 mcg p.o. daily. 12. Metformin 1000 mg p.o. b.i.d. 13. Metoprolol tartrate 50 mg p.o. b.i.d. 14. Morphine sulfate 30 mg p.o. t.i.d. 15. Pravastatin 20 mg p.o. daily. DRUG ALLERGIES: CHLORPROMAZINE, THIORIDAZINE. FAMILY HISTORY: Obtained from chart. Father had CVA, hypertension, and diabetes. Mother had hypertension and diabetes. Siblings are healthy. SOCIAL HISTORY: Obtained from chart. The patient quit smoking in 1986. He does not use alcohol. He is single and lives home alone. He is disabled from a lumbar injury in 1988. REVIEW OF SYSTEMS: Attempted a 14-point review of systems, although the patient is unable to answer questions at this time. PHYSICAL EXAM: General: Mr. Cerda is a well-developed, well-nourished, overweight, older white male, who is lying in bed. His eyes are closed. He does not respond to questioning, although he does move and moan. He appears mildly uncomfortable. HEENT: Bilateral eyes are closed and the patient does not follow instructions overnight. There is periorbital edema likely the results of surgical positioning. Hearing appears to be grossly intact. Oral mucous membranes are dry. Cardiovascular: Sinus tachycardia with S1, S2 present without murmurs, rubs, clicks or gallops. There is no JVD or peripheral edema. Pulmonary: Symmetrical chest expansion without use of accessory muscles. Clear to auscultation bilaterally anteriorly, although the patient unable to follow instructions for deep breathing. Abdomen: Bowel sounds in all quadrants. Soft, nontender to palpation. Musculoskeletal: The patient is able to move bilateral lower extremities and is able to move distal digits bilaterally in upper and lower extremities. Neuro: The patient is awake. He does not answer orientation questions. I am unable to assess the cranial nerves as the patient is uncooperative during the exam. ASSESSMENT AND PLAN: Mr. Cerda is a 68-year-old male with a past medical history of diabetes mellitus, non-insulin dependent; atrial fibrillation, status post Watchman; hypertension; hyperlipidemia, who presented to [facility] today for an elective transforaminal lumbar interbody fusion of L4-L5 and L5-S1, and will be admitted for; 1. Transforaminal lumbar interbody fusion L4-L5 and L5-S1, management per Neurosurgery. Pain management per Dr. Mccabe. The patient will receive L- spine x-ray in the a.m. Activity up as tolerated. 2. Diabetes mellitus. The patient's home metformin will be held. He will be started on lispro sliding scale based on fingersticks. 3. Hypertension. Continue metoprolol and Cardizem with holding parameters. At this time, we will hold the patient's enalapril. 4. Paroxysmal atrial fibrillation. Watchman in place. Continue Cardizem, metoprolol, amiodarone. The patient had a Watchman placed on 05/30/19 and was subsequently stopped his DOAC. He was placed on aspirin and Plavix. At this time, both medications will be held. He will restart aspirin tomorrow and Plavix will be held for a total of 7 days with instructions to restart. 5. Hyperlipidemia. Continue statin. 6. Parkinson's disease. The patient does not appear to be on any medication at this time. 7. Hypothyroidism. Continue levothyroxine. 8. Chronic pain. Continue the patient's home gabapentin and duloxetine. Further recommendations per Pain Management, Dr. Mccabe. 9. DVT prophylaxis per Neurosurgery, SCDs. 10. Code status. Full code. TIME SPENT: Approximately 30 minutes was spent on this consultation, greater than half the time was spent [id number] with the patient. The case has been reviewed with my attending, Dr. Washburn, who is in agreement with the plan of care. VIVIANA BROWNING [id number]/[facility] #: [id number] BIANK[facility]
--- NOTE | 2019-07-11 21:31 | OP ---
DATE OF OPERATION: 07/11/19 - ROOM #ICU-04 DATE OF : 46 SURGEON: Chadwick Guzman MD SALES REPRESENTATIVE METALS: JEREMIAH Rice. The case was done with the assistance of JEREMIAH because of the complexity of the case. ANESTHESIA: General. PRE-OP DIAGNOSES: 1. Degenerative disc disease. 2. Spondylosis. POST-OP DIAGNOSES: 1. Degenerative disc disease. 2. Spondylosis. OPERATIVE PROCEDURE: The patient underwent left L4-L5 and L5-S1 MIS TLIF with PEEK interbody cages, iliac crest bone graft from a separate incision, DBX, local bone graft with expandable cages and bilateral pedicle screws L4, L5, and S1 with intraoperative navigation and intraoperative monitoring with intraoperative microscope. ESTIMATED BLOOD LOSS: 60 cc. COMPLICATIONS: None. INDICATIONS: The patient is a very pleasant 68-year-old gentleman with complaints of back pain radiating to both lower extremities, left worse than right with MRI findings consistent with severe degenerative disease. The patient failed conservative treatment modalities and because of his persistent symptoms, he was offered the option of surgical intervention. After discussion in extent with the patient regarding the expectations, limitations, and possible complications of the procedure with complications including, but not limited to, bleeding, infection, risk of injury to adjacent structures, coma, paralysis, , need for additional procedures, anesthesia risks, stroke, blindness, cancer, instability, hardware failure, adjacent level disease, pseudoarthrosis, spinal fluid leak, need for additional procedures, loss of bladder or bowel control, postoperative hematoma, deep venous thrombosis, pulmonary embolism, need for tracheostomy or gastrostomy, need for prolonged ICU stay, prolonged rehabilitation, prolonged hospitalization, and provisional need for additional procedures in the future and anesthesia risks, the patient was agreeable to proceed with surgery and informed consent was obtained. The patient understood that his condition may not improve and in fact may get worse after surgery and that he may need to have additional procedures in the future. He also understood that operative plan may be modified according to intraoperative findings and conditions and that the case may be abandoned or done in more than one stages. The patient understood that he may experience a significant postoperative pain with a prolonged rehabilitation or ICU stay. DESCRIPTION OF PROCEDURE: The patient was brought to the operating room and was placed under general anesthesia by the anesthesia team. He was positioned prone on Vick table and all bony prominences were meticulously padded. His skin was prepped and draped in the standard fashion. After appropriate surgical pause and patient identification, a small incision over the right iliac crest was marked on the skin. The skin was infiltrated with local anesthetic and a #10 surgical blade was used to incise the skin. The incision was carried down with Bovie cautery. With the assistance of Jamshidi needle, the Corex trocar was inserted and iliac crest bone graft was harvested. Through the same incision, the pin for the navigation star was secured and O- arm intraoperative CT imaging was obtained. The patient's data was transferred to the navigation platform and with the assistance of stereotactic navigation, the projection of the pedicles of L4, L5, and S1 were marked on the skin. The skin was infiltrated with local anesthetic and a #10 surgical blade was used to incise the skin. Two small paramedian incisions were performed with the assistance of #10 surgical blade. The incision was carried down through the subcutaneous tissue with Bovie cautery and with the assistance of high- speed drill, awl tip tap, and the stereotactic navigation, the pedicles were cannulated, and Voyager Flapsharetronic ATS screws were inserted in each pedicle. Then , attention was brought to insert the METRx tubular retractor system over the L4 -L5 disc space on the left side with the assistance of the intraoperative navigation through a separate fascial incision. The intraoperative microscope was brought into the field and after exposing the medial part of the L4-L5 facet and the medial L4-L5 hemilamina, a high-speed drill, and Kerrison punches were used to perform a partial laminectomy and exposure of the thecal sac and the nerve root. Bone from the laminectomy site was saved in order to be used in the arthrodesis part of the procedure. The pedicle of L5 was skeletonized with the use of Kerrison punches, and the disc space was then identified. After gentle medial retraction of the thecal sac and the nerve root, and after epidural venous plexus was coagulated, a discectomy and preparation of the disc space was performed after incising the posterior longitudinal ligament and annulus fibrosis with a #15 surgical blade. Of note, significant calcifications overlapping the disc space were encountered and a high- speed drill and Kerrison punches were used to perform a posterior osteotomy and obtain access into the disc space. After the preparation of the disc space with a series of dilators, an Elevate Medtronic expandable cage was filled with a mixture of DBX iliac crest bone graft and locally harvested bone graft, and after filling the disc space with mixture of material, the cage was inserted. Then, it was gently expanded and after removal of the water treatment plant repairer and confirmation of meticulous hemostasis and copious irrigation and meticulous inspection, the nerve root and the thecal sac was found to be free of any pressure phenomenon and the wound was closed by layers. The tubular retractor system was then positioned over the L5-S1 disc space with similar technique and the procedure was repeated. For the L5-S1 disc space of note, also significant calcification over the disc space was encountered as expected from intraoperative imaging and a small osteotomy was necessary in order to gain access to the disc space. It was performed with high-speed drill. After the insertion of the second expandable cage and after copious irrigation, confirmation of meticulous hemostasis and meticulous inspection, the nerve root and the thecal sac was found to be free of any pressure phenomenon. The tubular retractor was then gently removed and after confirmation of meticulous hemostasis, and copious irrigation, and meticulous inspection, the dorsal fascial defect was approximated with 0 interrupted Vicryl sutures. Then, attention was brought to insert 2 cobalt chrome rods. After inserting the two cobalt chrome rods through the same stab wound incisions, they were secured in place with screw head caps. The second intraoperative O-arm imaging was performed and we confirmed excellent placement of all hardware and good religious of disc space in both levels. The screw head caps were final tightened and after removing of the screw extenders, the joey inserters and navigation star and its pin and after copious irrigation and confirmation of meticulous hemostasis and meticulous inspection, the wounds were closed by layers with 0 interrupted Vicryl sutures to approximate the dorsal fascia defect and inverted interrupted 2-0 Vicryl sutures to approximate the subcutaneous tissue. The skin was then covered with Dermabond. At the end of the procedure, all counts were reported to be correct. The patient remained hemodynamically stable throughout the case and intraoperative electrophysiological monitoring was stable throughout the case. The patient was then turned supine, was extubated, and was transferred to Recovery in excellent condition. [id number]/[facility] #: [id number] B[facility] SETON HOSPITALChris
[2019-07-11] MEDS: Metoprolol Tartrate TAB* 50 mg PO SCH (21:50)
[2019-07-11] MEDS: Gabapentin CAP(*) 300 MG PO SCH (21:50)
[2019-07-11] MEDS: Docusate CAP* 100 MG PO SCH (21:50)
[2019-07-11] MEDS: DULoxetine DR CAP* 60 MG CAP.DR PO SCH (22:51)
[2019-07-11] MEDS ORDERED: HYDROmorphone INJ1* 1 MG/ML SYRINGE IV SLOW PU ONE (23:05)
[2019-07-12] MEDS: Gabapentin CAP(*) 300 MG PO SCH ×3 (04:19→20:50)
[2019-07-12] MEDS: Morphine TAB Extended Release (*) 30 MG TAB.ER PO SCH ×3 (04:19→20:52)
[2019-07-12] MEDS: HYDROmorphone TAB* 4 MG PO PRN ×3 (05:16→16:25)
[2019-07-12] MEDS: Levothyroxine TAB* 88 MCG TAB PO SCH (06:04)
[2019-07-12] MEDS: Docusate CAP* 100 MG PO SCH ×2 (08:41→20:50)
[2019-07-12] MEDS: Diltiazem CD CAP* 240 MG PO SCH (08:41)
[2019-07-12] MEDS: DULoxetine DR CAP* 60 MG CAP.DR PO SCH ×2 (08:42→20:50)
[2019-07-12] MEDS: CMCS:Pravastatin (NF) 20 MG TAB PO SCH (08:42)
[2019-07-12] MEDS: Amiodarone TAB* 200 MG PO SCH (08:44)
[2019-07-12] MEDS: Aspirin 81 mg CHEW TAB* 81 MG TAB.CHEW PO SCH (08:44)
[2019-07-12] MEDS: Metoprolol Tartrate TAB* 50 mg PO SCH ×2 (08:44→20:52)
[2019-07-12] MEDS: Insulin LISPRO* 1 UNITS UNIT SUBCUT SCH ×3 (08:50→18:03)
[2019-07-12] MEDS ORDERED: GABAPENTIN 1800 MG PO SCH (09:00)
--- NOTE | 2019-07-12 16:44 | PN ---
Progress Note - Progress Note Date of Service: 07/12/19 SOAP: Subjective: []No events ON. On regular floor. Ambulated earlier. Voids, Tolerates PO well. Pain is well controlled. Wants to go home. Objective: [] VSS Wounds s,c,d AAOx3 LUISA, CN II-XII grossly intact. Motor 5/5 all extremities Sensory grossly intact to light touch except decreased to light touch left LE bellow thigh and RLE bellow knee, similar to preop exam. Assessment: []68 yom POD#1 Left L4-5, L5-S1 MIS TLIF Plan: []Monitor VS, Neurochecks Encourage ambulation. XR of Lumbar spine reveals good placement of hardware, good alignment of spine. DC planning, possibly tomorrow PT DC instructions: No lifting, no bending, No driving. Keep incision dry. May shower in two days. No baths. Follow up in the office in 7-10 days for wound check. Appreciate IM, Dr Mccabe's care. Cristhian Guzman MD
--- NOTE | 2019-07-12 16:55 | PN ---
Subjective Date of Service: 07/12/19 Interval History: Mr. Cerda states that his back is "sore" and rates pain at 8/10 currently. He states that pain medication typically helps control pain. He continues to have b/l LE paresthesias, which he has had for years. He has no other complaints today. Objective Active Medications: Acetaminophen (Tylenol Tab*) 650 mg PO Q4H PRN PRN Reason: MILD PAIN or TEMP > 100.4 Amiodarone HCl (Cordarone Tab*) [address] [facility] Last Admin: 07/12/19 08:44 Dose: 200 mg Amitriptyline HCl (Elavil Tab*) 75 mg PO BEDTIME [facility] Aspirin (Aspirin 81 Mg Chew Tab*) 81 mg PO QAM [facility] Last Admin: 07/12/19 08:44 Dose: 81 mg Dextrose (D50w Syringe 50 Ml*) 12.5 gm IV PUSH .FOR FS < 60 - SS PRN PRN Reason: FS < 60 Diltiazem HCl (Cardizem Cd Cap*) 240 mg PO QAM [facility] Last Admin: 07/12/19 08:41 Dose: 240 mg Docusate Sodium (Colace Cap*) 100 mg PO BID [facility] Last Admin: 07/12/19 08:41 Dose: 100 mg Duloxetine HCl (Cymbalta Cap*) 60 mg PO BID [facility] Last Admin: 07/12/19 08:42 Dose: 60 mg Gabapentin (Neurontin Cap(*)) 600 mg PO Q8H [facility] Last Admin: 07/12/19 12:36 Dose: 600 mg Hydromorphone HCl (Dilaudid Tab*) 8 mg PO Q4H PRN PRN Reason: PAIN - SEVERE Last Admin: 07/12/19 16:25 Dose: 8 mg Hydromorphone HCl (Dilaudid Tab*) 6 mg PO Q4H PRN PRN Reason: PAIN - MODERATE Hydromorphone HCl (Dilaudid Tab*) 4 mg PO Q4H PRN PRN Reason: PAIN - MILD Last Admin: 07/11/19 20:17 Dose: 4 mg Insulin Human Lispro (Humalog*) 0 units SUBCUT [facility]; Protocol Last Admin: 07/12/19 12:42 Dose: 4 unit Levothyroxine Sodium (Synthroid Tab*) 88 mcg PO QAM@0600 [facility] Last Admin: 07/12/19 06:04 Dose: 88 mcg Magnesium Hydroxide (Milk Of Magnesia Liq*) 30 ml PO DAILY PRN PRN Reason: CONSTIPATION Metoprolol Tartrate (Lopressor Tab*) 50 mg PO BID [facility] Last Admin: 07/12/19 08:44 Dose: 50 mg Morphine Sulfate (Ms Contin(*)) 30 mg PO Q8H [facility] Last Admin: 07/12/19 11:43 Dose: 30 mg Ondansetron HCl (Zofran Inj*) 4 mg IV Q6H PRN PRN Reason: NAUSEA/VOMITING Pravastatin Sodium (Pravachol (Nf)) 20 mg PO QAM [facility]; Protocol Last Admin: 07/12/19 08:42 Dose: 20 mg Senna (Senokot 8.6 Mg Tab*) 2 tab PO BEDTIME PRN PRN Reason: CONSTIPATION Vital Signs: Temp Pulse Resp BP Pulse Ox 98.8 F 94 18 142/76 96 07/12/19 15:44 07/12/19 10:56 07/12/19 16:25 07/12/19 15:44 07/12/19 10:56 Oxygen Devices in Use Now: None Appearance: Mr. Cerda is an overweight, older white male who is laying in bed. He appears mildly uncomfortable, worse with movement. Eyes: No Scleral Icterus, PERRLA Ears/Nose/Mouth/Throat: NL Teeth, Lips, Gums, Clear Oropharnyx, Mucous Membranes Moist Neck: NL Appearance and Movements; NL JVP, Trachea Midline Respiratory: Symmetrical Chest Expansion and Respiratory Effort, Clear to Auscultation Cardiovascular: NL Sounds; No Murmurs; No JVD, RRR, No Edema Abdominal: NL Sounds; No Tenderness; No Distention, No Hepatosplenomegaly Neurological: Alert and Oriented x 3, - - Sensation decreased distally to b/l LE ; there is a CDI dressing in place to the L and R lateral of the lower lumbar region Result Diagrams: 07/11/19 06:45 Microbiology and Other Data: Microbiology 07/11/19 18:45 Nasal Screen MRSA (PCR) - Final Nasal Mrsa Detected Assess/Plan/Problems-Billing Assessment: Mr. Cerda is a 68 yom with PMHx DM, HTN, HLD, AF s/p Watchman procedure, chronic pain s/p 2 L spine surgeries presents for TLIF L4-L5, L5-S1. - Patient Problems (1) S/P lumbar fusion Comment: -s/p TLIF L4-L5, L5-S1 -continue pain management, bowel regimen -L-spine x-ray cleared by neurosurgery; OK to d/c per neurosurg (2) Hypertension Comment: -SBP 110-140's -continue dilt, metoprolol (3) Diabetes mellitus Comment: -BS 160-230 -continue lispro ss, FS AC -hold metformin (4) Hyperlipidemia Comment: -continue statin (5) Atrial fibrillation Comment: -continue home dilt, metoprolol, amiodarone -s/p Watchman procedure 05/2019 (6) Chronic pain Comment: -per pain management (7) Hypothyroidism Comment: -continue levothyroxine (8) DVT prophylaxis Comment: -SCDs (9) Full code status Status and Disposition: Inpatient. Discharge when stable; plan for discharge home tomorrow.
[2019-07-12 19:24] LABS: ABS Lymphocytes 1.3 10^3/ul (1.0-4.8); ABS Monocytes 1.2 10^3/ul (0-0.8); ABS Neutrophils 7.8 10^3/ul (1.5-7.7); Eosinophil % 0.4 %; Hematocrit 32 % (42-52); Hemoglobin 11.5 g/dL (14.0-18.0); Lymphocyte % 12.4 %; Mean Corpuscular HGB Conc 36 g/dL (31-36); Mean Corpuscular Hemoglobin 33 pg (27-31); Mean Corpuscular Volume 92 fL (80-94); Mean Platelet Volume 8.1 fL (7.4-10.4); Platelet Count 233 10^3/uL (150-450); Red Blood Count 3.48 10^6 /uL (4.18-5.48); Red Cell Distribution Width 13 % (10-15); White Blood Count 10.4 10^3/uL (3.5-10.8)
[2019-07-12] MEDS ORDERED: Amitriptyline TAB* 25 MG PO SCH (21:00)
[2019-07-13] MEDS: Morphine TAB Extended Release (*) 30 MG TAB.ER PO SCH ×2 (04:07→11:22)
[2019-07-13] MEDS: Levothyroxine TAB* 88 MCG TAB PO SCH (05:13)
[2019-07-13] MEDS: Gabapentin CAP(*) 300 MG PO SCH ×2 (05:13→13:48)
[2019-07-13 06:55] LABS: ABS Eosinophils 0.1 10^3/ul (0-0.6); ABS Lymphocytes 1.1 10^3/ul (1.0-4.8); ABS Monocytes 1.2 10^3/ul (0-0.8); ABS Neutrophils 5.6 10^3/ul (1.5-7.7); Eosinophil % 1.3 %; Hematocrit 31 % (42-52); Hemoglobin 10.7 g/dL (14.0-18.0); Lymphocyte % 13.9 %; Mean Corpuscular HGB Conc 34 g/dL (31-36); Mean Corpuscular Hemoglobin 32 pg (27-31); Mean Corpuscular Volume 93 fL (80-94); Mean Platelet Volume 7.6 fL (7.4-10.4); Platelet Count 194 10^3/uL (150-450); Red Blood Count 3.35 10^6 /uL (4.18-5.48); Red Cell Distribution Width 13 % (10-15); White Blood Count 8.1 10^3/uL (3.5-10.8)
--- NOTE | 2019-07-13 07:42 | PN ---
Progress Note - Progress Note Date of Service: 07/13/19 SOAP: Subjective: []No events ON. Ambulates. Voids, Tolerates PO well. Pain is well controlled. Wants to go home Objective: []VSS Wounds s,c,d AAOx3 LUISA, CN II-XII grossly intact. Motor 5/5 all extremities Sensory grossly intact to light touch except decreased to light touch left LE bellow thigh and RLE bellow knee, similar to preop exam. Assessment: []68 yom POD#2 Left L4-5, L5-S1 MIS TLIF Plan: [] Monitor VS, Neurochecks Encourage ambulation. DC planning, possibly today if cleared by PT, SW. PT DC instructions were given to the patient: No lifting, no bending, No driving. Keep incision dry. May shower in two days. No baths. Follow up in the office in 7-10 days for wound check. Appreciate IM, Dr Mccabe's care. Cristhian Guzman MD .
[2019-07-13] MEDS: Metoprolol Tartrate TAB* 50 mg PO SCH (09:19)
[2019-07-13] MEDS: Docusate CAP* 100 MG PO SCH (09:19)
[2019-07-13] MEDS: Amiodarone TAB* 200 MG PO SCH (09:19)
[2019-07-13] MEDS: Aspirin 81 mg CHEW TAB* 81 MG TAB.CHEW PO SCH (09:19)
[2019-07-13] MEDS: Diltiazem CD CAP* 240 MG PO SCH (09:19)
[2019-07-13] MEDS: Insulin LISPRO* 1 UNITS UNIT SUBCUT SCH ×2 (09:19→13:48)
[2019-07-13] MEDS: CMCS:Pravastatin (NF) 20 MG TAB PO SCH (09:21)
[2019-07-13] MEDS: DULoxetine DR CAP* 60 MG CAP.DR PO SCH (09:21)
--- NOTE | 2019-07-13 11:37 | DS ---
DISCHARGE SUMMARY: DATE OF ADMISSION: 07/11/19 DATE OF DISCHARGE: 07/13/19 PRIMARY CARE PROVIDER: Dr. David Goncalves. OTHER PROVIDERS: Dr. Chadwick Guzman, Dr. Garsia. ATTENDING PROVIDER: Dr. Heidy Washburn * (dictated by VIVIANA Waddell). DISCHARGE DIAGNOSIS: Left L4-L5, L5-S1 MIS TLIF. SECONDARY DIAGNOSES: 1. Diabetes mellitus. 2. Hypertension. 3. Atrial fibrillation, status post Watchman, 05/30/19. 4. Hyperlipidemia. 5. Hypothyroidism. 6. Chronic pain. 7. Reported history of Parkinson disease, does not appear to be on any treatment. DISCHARGE MEDICATIONS: Home medications: 1. Amiodarone 200 mg p.o. daily. 2. Amitriptyline 75 mg p.o. at bedtime. 3. Aspirin 81 mg p.o. daily. 4. Cardizem 240 mg p.o. daily. 5. Diclofenac epolamine 1 tab p.o. q.12 hours. 6. Diclofenac potassium 50 mg p.o. t.i.d. 7. Duloxetine 60 mg p.o. b.i.d. 8. Enalapril maleate 20 mg p.o. daily. 9. Gabapentin 1800 mg p.o. daily. 10. Hydromorphone 4 mg p.o. q.4 hours p.r.n. pain. 11. Levothyroxine 88 mcg p.o. daily. 12. Metformin 1000 mg p.o. b.i.d. 13. Metoprolol tartrate 50 mg p.o. b.i.d. 14. Morphine sulfate 30 mg p.o. t.i.d. as scheduled. 15. Pravastatin 20 mg p.o. daily. New home medications: 1. Docusate cap 100 mg p.o. b.i.d. p.r.n. constipation. 2. Magnesium hydroxide 30 mL p.o. daily p.r.n. constipation. 3. Senna 2 tabs p.o. at bedtime p.r.n. constipation. DIAGNOSTIC STUDIES: Lumbar x-ray, impression, fusion of the L4-L5 and L5-S1 with transpedicular screws and intravertebral disk fusion. HISTORY OF PRESENT ILLNESS/HOSPITAL COURSE: Mr. Cerda is a 68-year-old male with past medical history of diabetes, hypertension, atrial fibrillation, status post Watchman, chronic pain, and history of disabling back injury in 1988 while at work requiring 3 back surgeries including the one that occurred during his visit, who presented to [facility] for an elective TLIF. Operation was performed by Dr. Guzman due to degenerative disk disease and spondylosis. The patient was admitted for pain control and physical therapy. Pain management consult was obtained due to the patient's chronic use of opiate medication. Medications were made by Pain Management, who increased the patient 's home dose of Dilaudid from 4 to 6 to 8 mg depending on his pain. Throughout the patient's stay, his pain was relatively well controlled. He worked with Physical Therapy throughout his stay, who recommended skilled PT services. The patient reports that he lives in a trailer without electricity or running water and has no intention of turning these components back on. He has lived this way for quite some time and has adapted well to this lifestyle. It was recommended that he consider placement for some time, for instance short-term rehab, but he is unwilling and would prefer to be discharged to home. He has the capacity to make this decision and therefore will be discharged to home in order for outpatient physical therapy will be placed. The patient was recommended to go home with a walker, although, he does not believe that he will be able to fit a walker to his apartment. He does have a cane which he uses without difficulty. He has plans to follow up with Dr. Guzman in 4 to 7 days. He was prescribed 10 days supply of his home pain medications with instructions to follow up with Dr. Guzman or primary care provider for refills. Activity restrictions include no lifting, bending, or driving. He is advised to keep his incision dry, no bathing, may shower in 2 days. REVIEW OF SYSTEMS: A 14-point review of systems has been performed and all the pertinent positives and negatives are in the HPI. All other systems are negative. PHYSICAL EXAMINATION: General: Mr. Cerda is a well-developed, well-nourished, overweight, older white male, who is lying on his left side in bed. He appears mildly uncomfortable but in no acute distress. He is breathing comfortably and is on room air. HEENT: PERRL. EOMI. Visual bae are grossly intact. Sclerae nonicteric without injection. Hearing is grossly intact. Oral mucous membranes are moist. There are no lesions. The pharynx is clear. Palate elevates symmetrically. Tongue is at midline. Unable to visualize posterior pharynx. Cardiovascular: Regular rate and rhythm with S1, S2 present. No murmurs, rubs, clicks, or gallops. There is no JVD or peripheral edema. Pulmonary: Symmetrical chest expansion without use of accessory muscles. Clear to auscultation bilaterally. No rhonchi, wheeze, or rhonchi. Abdomen: Bowel sounds in all quadrants. Soft, nontender to palpation. Musculoskeletal: There are clean, dry, intact dressings in place to the left and right of the lumbar spine. There is no surrounding erythema. No drainage noted on dressings. Neuro: The patient is awake. He is alert and oriented x3. Cranial nerves II through XII are grossly intact. He reports diminished sensation in the distal lower extremity digits but equal sensation elsewhere in the lower extremities. DISCHARGE PLAN: Mr. Cerda will be discharged to home. CONDITION: Good. DIET: Resume home diet. ACTIVITY: 1. No lifting, bending, driving. 2. Keep incision dry; no bathing; may shower in 2 days. MEDICATIONS: 1. Ten days supply of home pain medication has been sent to pharmacy. Please follow with Dr. Guzman or primary care provider for refills. 2. Continue daily aspirin 81 mg now. May restart Plavix in 7 days. EDUCATION: 1. Continue outpatient physical therapy. 2. Follow up with Dr. Guzman in 4 to 7 days. 3. Follow up with primary care provider in 4 to 7 days. 4. Return to the ER or nearest hospital if you experience any worsening of pain , fever, chills, night sweats, increased pain at incision site, surrounding erythema or drainage. Return for chest pain or discomfort, dizziness, lightheadedness, loss of consciousness. This is a summarized report of a complex medical history and hospital stay. For further details, please see the entire medical record. TIME SPENT: Approximately 35 minutes was spent on this discharge, greater than half that time was spent [id number] with the patient discussing discharge plans and instructions. VIVIANA BROWNING [id number]/[facility] #: [id number] [facility] CENTERChris
[2019-07-13 12:23] VITALS: BP 126/70
[2019-07-13] MEDS: HYDROmorphone TAB* 4 MG PO PRN (13:48)
== END 2019-07-13 15:45 | disposition home or self-care (01) | DRG 304 ==
LOC: AA 07-11 05:58 → ICU 07-11 18:51 → SSU 07-12 10:59
PROVIDERS: ADMIT Neurological Surgery; ATTEND Internal Medicine
PROC: 4A11X4G Monitoring of Peripheral Nervous Electrical Activity, Intraoperative, External Approach (ICD-10-PCS; 2019-07-11)
PROC: 0QB33ZZ Excision of Left Pelvic Bone, Percutaneous Approach (ICD-10-PCS; 2019-07-11)
PROC: 0SG33AJ Fusion of Lumbosacral Joint with Interbody Fusion Device, Posterior Approach, Anterior Column, Percutaneous Approach (ICD-10-PCS; 2019-07-11)
PROC: 01NB3ZZ Release Lumbar Nerve, Percutaneous Approach (ICD-10-PCS; 2019-07-11)
PROC: 00NY3ZZ Release Lumbar Spinal Cord, Percutaneous Approach (ICD-10-PCS; 2019-07-11)
PROC: 0SB23ZZ Excision of Lumbar Vertebral Disc, Percutaneous Approach (ICD-10-PCS; 2019-07-11)
PROC: 0SB43ZZ Excision of Lumbosacral Disc, Percutaneous Approach (ICD-10-PCS; 2019-07-11)
PROC: 8E0WXBZ Computer Assisted Procedure of Trunk Region (ICD-10-PCS; 2019-07-11)
PROC: 0SG03AJ Fusion of Lumbar Vertebral Joint with Interbody Fusion Device, Posterior Approach, Anterior Column, Percutaneous Approach (ICD-10-PCS; principal; 2019-07-11 07:30)
DX: M47.26 Other spondylosis with radiculopathy, lumbar region (principal); I10 Essential (primary) hypertension; I48.0 Paroxysmal atrial fibrillation; E78.5 Hyperlipidemia, unspecified; E03.9 Hypothyroidism, unspecified; G20 Parkinson's disease; G89.4 Chronic pain syndrome; E11.40 Type 2 diabetes mellitus with diabetic neuropathy, unspecified; G47.33 Obstructive sleep apnea (adult) (pediatric); F41.9 Anxiety disorder, unspecified; K21.9 Gastro-esophageal reflux disease without esophagitis; F32.9 Major depressive disorder, single episode, unspecified; M51.16 Intervertebral disc disorders with radiculopathy, lumbar region; Z88.8 Allergy status to other drugs, medicaments and biological substances; Z87.891 Personal history of nicotine dependence; Z95.828 Presence of other vascular implants and grafts; Z79.82 Long term (current) use of aspirin; Z79.899 Other long term (current) drug therapy; Z79.890 Hormone replacement therapy; Z79.84 Long term (current) use of oral hypoglycemic drugs; Z86.73 Personal history of transient ischemic attack (TIA), and cerebral infarction without residual deficits
CPT/HCPCS: 36415; 72100; 76000; 80048; 85025; 86850; 86900; 86901; 87641; A9270-GY; J0690; J1170; J2250; J2270; J2704; J3010